=== PATIENT | male | born 1975 | race African-American/Black ===

== ENCOUNTER 2018-09-06 14:49 | Inpatient (IN) ==
[2018-09-06] MEDS ORDERED: ONDANSETRON 4 MG/2 ML VIAL IV PRN (17:07)
[2018-09-06] MEDS: MORPHINE ER 30 MG TABLET PO SCH (18:33)
[2018-09-06] MEDS: PIPERACILLIN/TAZOBACTAM 3,375 MG in SODIUM CHLORIDE 0.9% 100 ML IV SCH (20:03)
[2018-09-07] MEDS: PIPERACILLIN/TAZOBACTAM 3,375 MG in SODIUM CHLORIDE 0.9% 100 ML IV SCH ×3 (04:11→20:36)
[2018-09-07] MEDS: diphenhydrAMINE 50 MG/1 ML VIAL IV PRN (04:32)
[2018-09-07 04:58] LABS: INR 1.3; PT Patient Result 13.9 SECS; Partial Thromboplastin Time 28.3 SECS (0-40)
[2018-09-07 04:59] LABS: Basophils % 0.4 % (0.0-0.8); Eosinophils # 0.1 10*3/uL (0.0-0.87); Eosinophils % 0.8 % (0.00-10.9); Hematocrit 28.9 VOL% (42.0-52.0); Hemoglobin 9.5 GM/DL (14.0-18.0); Lymphocytes % 9.9 % (21.2-54.2); Mean Corpuscular HGB Conc 32.9 GM/DL (32-36); Mean Corpuscular Hemoglobin 26 PG (27-34); Mean Corpuscular Volume 78.5 FL (87-102); Mean Platelet Volume 9.7 FL (9.6-12.0); Monocytes # 1.1 10*3/uL (0.11-0.8); Monocytes % 11.5 % (1.7-12.7); Neutrophils # 7.4 10*3/uL (1.4-7.4); Neutrophils % 76.4 % (38.7-73.9); Platelet Count 548 T/CUMM (130-400); Red Blood Count 3.68 MC/CUMM (3.8-5.5); Red Cell Distribution Width 18.6 % (9.3-17.3); White Blood Count 9.7 T/CUMM (4-12)
[2018-09-07 05:10] LABS: Albumin 2.3 G/DL (3.4-5.0); Bilirubin,Direct 4.77 MG/DL (0.0-0.20); Bilirubin,Indirect 0.9 MG/DL (0.0-1.0); Bilirubin,Total 5.7 MG/DL (0.2-1.0); Calcium 8.9 MG/DL (8.5-10.1); Osmolality,Calculated 266.4 MOS/KG (273-304); Total Protein 6.6 G/DL (6.4-8.3)
[2018-09-07 05:13] LABS: % Iron Saturation 16.1 % (18-50); Ferritin 399.7 ng/ml (26-388)
[2018-09-07 05:18] LABS: Free T4 (Free Thyroxine) 1.22 NG/DL (0.76-1.46); Thyroid Stimulating Hormone 1.51 uIU/ml (0.358-3.74)
[2018-09-07] MEDS: MORPHINE ER 30 MG TABLET PO SCH ×2 (06:43→18:46)
[2018-09-07] MEDS: MORPHINE 4 MG/1 ML VIAL IV PRN ×2 (06:49→10:50)
[2018-09-07] MEDS ORDERED: DIAZEPAM 5 MG TABLET PO ONE (08:48)
[2018-09-07] MEDS ORDERED: BISACODYL 5 MG TABLET PO ONE (12:00)
[2018-09-07] MEDS ORDERED: SODIUM CHLORIDE 0.45% 1,000 ML IV SCH (13:00)
[2018-09-07] MEDS: SODIUM CHLORIDE 0.9% 1,000 ML IV SCH (16:17)
[2018-09-07] MEDS ORDERED: POLYETHYLENE GLYCOL POWDER 255 GM BOTTLE PO ONE (18:00)
[2018-09-07] MEDS: ACETAMINOPHEN 325 MG TABLET PO PRN (19:48)
[2018-09-07] MEDS ORDERED: MAGNESIUM CITRATE 300 ML BOTTLE PO ONE (21:00)
[2018-09-08] MEDS: PIPERACILLIN/TAZOBACTAM 3,375 MG in SODIUM CHLORIDE 0.9% 100 ML IV SCH (03:38)
[2018-09-08] MEDS ORDERED: MAGNESIUM CITRATE 300 ML BOTTLE PO ONE (05:30)
[2018-09-08 06:18] LABS: Basophils # 0.1 10*3/uL (0.0-0.2); Basophils % 0.4 % (0.0-0.8); Eosinophils # 0.1 10*3/uL (0.0-0.87); Eosinophils % 0.6 % (0.00-10.9); Hemoglobin 9.7 GM/DL (14.0-18.0); Immature Granulocytes % 2.6 %; Lymphocytes # 0.7 10*3/uL (1.4-4.0); Lymphocytes % 5.9 % (21.2-54.2); Mean Corpuscular HGB Conc 32.3 GM/DL (32-36); Mean Corpuscular Hemoglobin 26 PG (27-34); Mean Corpuscular Volume 78.7 FL (87-102); Mean Platelet Volume 9.2 FL (9.6-12.0); Monocytes # 1.2 10*3/uL (0.11-0.8); Monocytes % 9.8 % (1.7-12.7); Neutrophils # 9.4 10*3/uL (1.4-7.4); Neutrophils % 80.7 % (38.7-73.9); Platelet Count 556 T/CUMM (130-400); Red Blood Count 3.81 MC/CUMM (3.8-5.5); White Blood Count 11.7 T/CUMM (4-12)
[2018-09-08] MEDS: MORPHINE ER 30 MG TABLET PO SCH ×2 (06:18→18:05)
[2018-09-08 06:26] LABS: INR 1.3; PT Patient Result 14.6 SECS
[2018-09-08 06:40] LABS: Albumin 2.4 G/DL (3.4-5.0); Bilirubin,Total 8.8 MG/DL (0.2-1.0); Calcium 8.9 MG/DL (8.5-10.1); Osmolality,Calculated 267.4 MOS/KG (273-304); Potassium 4.7 MMOL/L (3.5-5.1); Total Protein 6.7 G/DL (6.4-8.3)
[2018-09-08] MEDS ORDERED: LIDOCAINE 2% 5 ML VIAL ONE (10:00)
[2018-09-08] MEDS ORDERED: PROPOFOL 200 MG/20 ML VIAL IV ONE (10:00)
[2018-09-08] MEDS: SODIUM CHLORIDE 0.9% 1,000 ML IV SCH ×2 (10:12→20:52)
[2018-09-08] MEDS: diphenhydrAMINE 50 MG/1 ML VIAL IV PRN (14:09)
[2018-09-08] MEDS: ACETAMINOPHEN 325 MG TABLET PO PRN (23:04)
[2018-09-09] MEDS: SODIUM CHLORIDE 0.9% 1,000 ML IV SCH (04:31)
[2018-09-09] MEDS: MORPHINE ER 30 MG TABLET PO SCH ×2 (06:22→18:10)
[2018-09-09 08:02] LABS: Basophils % 0.4 % (0.0-0.8); Eosinophils # 0.2 10*3/uL (0.0-0.87); Eosinophils % 2.1 % (0.00-10.9); Hematocrit 26.5 VOL% (42.0-52.0); Hemoglobin 8.8 GM/DL (14.0-18.0); Immature Granulocytes % 2.8 %; Immature Granulocytes Absolute 0.27 #; Lymphocytes # 0.8 10*3/uL (1.4-4.0); Mean Corpuscular HGB Conc 33.2 GM/DL (32-36); Mean Corpuscular Hemoglobin 26 PG (27-34); Mean Corpuscular Volume 78.9 FL (87-102); Monocytes # 0.9 10*3/uL (0.11-0.8); Monocytes % 9.6 % (1.7-12.7); Neutrophils # 7.5 10*3/uL (1.4-7.4); Neutrophils % 77.1 % (38.7-73.9); Platelet Count 511 T/CUMM (130-400); Red Blood Count 3.36 MC/CUMM (3.8-5.5); Red Cell Distribution Width 19.2 % (9.3-17.3); White Blood Count 9.8 T/CUMM (4-12)
[2018-09-09 08:25] LABS: Albumin 2.1 G/DL (3.4-5.0); Bilirubin,Total 7.6 MG/DL (0.2-1.0); Calcium 8.5 MG/DL (8.5-10.1); Osmolality,Calculated 270.4 MOS/KG (273-304); Potassium 4.5 MMOL/L (3.5-5.1); Total Protein 6.2 G/DL (6.4-8.3)
[2018-09-09] MEDS ORDERED: DEXTROSE 5% IV ONE (09:26)
[2018-09-09] MEDS ORDERED: OXALIPLATIN IV ONE (09:26)
[2018-09-09] MEDS ORDERED: LEUCOVORIN INJ 800 MG in DEXTROSE 5% 250 ML IV ONE (09:27)
[2018-09-09] MEDS ORDERED: PALONOSETRON 0.25 MG/5 ML VIAL IV ONE (09:28)
[2018-09-09] MEDS ORDERED: DEXAMETHASONE INJ 20 MG in SODIUM CHLORIDE 0.9% 50 ML IV ONE (09:28)
[2018-09-09] MEDS ORDERED: FOSAPREPITANT 150 MG in SODIUM CHLORIDE 0.9% 100 ML IV ONE (09:28)
[2018-09-09] MEDS: POLYETHYLENE GLYCOL POWDER 17 GM PACK PO SCH (11:23)
[2018-09-09] MEDS: FLUOROURACIL 2,400 MG in SODIUM CHLORIDE 0.9% 1,000 ML IV SCH (14:30)
[2018-09-09 22:38] LABS: Apearance,Urine CLEAR (Clear); Bilirubin,Urine Small mg/dL (Negative); Blood, Urine Negative (Negative); Glucose,Urine (UA) Negative (Negative); Hyaline Casts,Urine 4 /LPF (0-3); Ketones,Urine Negative (Negative); Mucus,Urine Occasional /LPF (Occasional); Nitrite,Urine Negative (Negative); Protein,Urine Negative; RBC,Urine <1 /HPF (0-4); Squamous Epithelial Cell,Urine Occasional /HPF (0-10); Urine Color Amber (Yellow); Urine Specific Gravity 1.025 (1.001-1.035); WBC,Urine 1 /HPF (0-6)
[2018-09-10] MEDS: SODIUM CHLORIDE 0.9% 1,000 ML IV SCH ×3 (02:44→13:11)
[2018-09-10 02:46] LABS: Basophils % 0.1 % (0.0-0.8); Hematocrit 27.8 VOL% (42.0-52.0); Immature Granulocytes Absolute 0.22 #; Lymphocytes # 0.7 10*3/uL (1.4-4.0); Mean Corpuscular HGB Conc 32.4 GM/DL (32-36); Mean Corpuscular Hemoglobin 26 PG (27-34); Mean Corpuscular Volume 79.9 FL (87-102); Mean Platelet Volume 9.5 FL (9.6-12.0); Monocytes # 0.6 10*3/uL (0.11-0.8); Neutrophils # 9.8 10*3/uL (1.4-7.4); Neutrophils % 86.9 % (38.7-73.9); Platelet Count 538 T/CUMM (130-400); Red Blood Count 3.48 MC/CUMM (3.8-5.5); Red Cell Distribution Width 19.5 % (9.3-17.3); White Blood Count 11.3 T/CUMM (4-12)
[2018-09-10 03:11] LABS: Albumin 2.2 G/DL (3.4-5.0); Bilirubin,Total 6.6 MG/DL (0.2-1.0); Calcium 8.8 MG/DL (8.5-10.1); Osmolality,Calculated 276.1 MOS/KG (273-304); Potassium 5.3 MMOL/L (3.5-5.1); Total Protein 6.6 G/DL (6.4-8.3)
[2018-09-10] MEDS: diphenhydrAMINE 50 MG/1 ML VIAL IV PRN ×2 (04:22→18:05)
[2018-09-10] MEDS: MORPHINE ER 30 MG TABLET PO SCH ×2 (07:07→18:54)
[2018-09-10] MEDS ORDERED: IRON SUCROSE 200 MG in SODIUM CHLORIDE 0.9% 100 ML IV SCH (09:00)
[2018-09-10] MEDS ORDERED: BISACODYL 5 MG TABLET PO PRN (09:56)
[2018-09-10] MEDS: POLYETHYLENE GLYCOL POWDER 17 GM PACK PO SCH (13:10)
[2018-09-10] MEDS: FLUOROURACIL 2,400 MG in SODIUM CHLORIDE 0.9% 1,000 ML IV SCH (14:59)
[2018-09-11] MEDS: SODIUM CHLORIDE 0.9% 1,000 ML IV SCH ×3 (00:47→18:30)
[2018-09-11 05:38] LABS: Basophils % 0.2 % (0.0-0.8); Hematocrit 28.5 VOL% (42.0-52.0); Hemoglobin 9.3 GM/DL (14.0-18.0); Immature Granulocytes % 1.8 %; Immature Granulocytes Absolute 0.23 #; Lymphocytes # 0.6 10*3/uL (1.4-4.0); Lymphocytes % 4.4 % (21.2-54.2); Mean Corpuscular HGB Conc 32.6 GM/DL (32-36); Mean Corpuscular Hemoglobin 26 PG (27-34); Mean Corpuscular Volume 79.4 FL (87-102); Mean Platelet Volume 9.5 FL (9.6-12.0); Monocytes # 0.5 10*3/uL (0.11-0.8); Monocytes % 3.5 % (1.7-12.7); Neutrophils # 11.6 10*3/uL (1.4-7.4); Neutrophils % 90.1 % (38.7-73.9); Platelet Count 580 T/CUMM (130-400); Red Blood Count 3.59 MC/CUMM (3.8-5.5); Red Cell Distribution Width 19.9 % (9.3-17.3); White Blood Count 12.9 T/CUMM (4-12)
[2018-09-11 06:09] LABS: Albumin 2.1 G/DL (3.4-5.0); Bilirubin,Total 6.2 MG/DL (0.2-1.0); Calcium 9.2 MG/DL (8.5-10.1); Potassium 5.9 MMOL/L (3.5-5.1); Total Protein 6.3 G/DL (6.4-8.3)
[2018-09-11] MEDS: MORPHINE ER 30 MG TABLET PO SCH ×2 (06:59→18:28)
[2018-09-11 07:11] LABS: Band Neutrophils 4 % (0-10); Polychromasia Few; Segmented Neutrophils 94 % (50-85); Total Cells Counted 100
[2018-09-11 07:12] LABS: Hypochromasia 1+; Microcytosis 1+; Platelet Estimate Increased; Stomatocytes Slight; Target Cells 1+; Tear Drop Cells Slight
[2018-09-11] MEDS ORDERED: SODIUM POLYSTYRENE SULFATE 15 GM/60 ML BOTTLE PO STA (09:31)
[2018-09-11] MEDS: POLYETHYLENE GLYCOL POWDER 17 GM PACK PO SCH (10:38)
[2018-09-11] MEDS: diphenhydrAMINE 50 MG/1 ML VIAL IV PRN (10:41)
[2018-09-12] MEDS: SODIUM CHLORIDE 0.9% 1,000 ML IV SCH (02:27)
[2018-09-12 04:55] LABS: Basophils % 0.1 % (0.0-0.8); Eosinophils % 0.1 % (0.00-10.9); Hematocrit 27.9 VOL% (42.0-52.0); Hemoglobin 9.1 GM/DL (14.0-18.0); Immature Granulocytes % 0.8 %; Lymphocytes # 0.8 10*3/uL (1.4-4.0); Lymphocytes % 6.2 % (21.2-54.2); Mean Corpuscular HGB Conc 32.6 GM/DL (32-36); Mean Corpuscular Hemoglobin 26 PG (27-34); Mean Corpuscular Volume 78.2 FL (87-102); Mean Platelet Volume 9.7 FL (9.6-12.0); Monocytes # 0.2 10*3/uL (0.11-0.8); Monocytes % 1.3 % (1.7-12.7); NRBC # 0.03 10*3/uL; Neutrophils # 11.4 10*3/uL (1.4-7.4); Neutrophils % 91.5 % (38.7-73.9); Platelet Count 491 T/CUMM (130-400); Red Blood Count 3.57 MC/CUMM (3.8-5.5); Red Cell Distribution Width 19.7 % (9.3-17.3); White Blood Count 12.5 T/CUMM (4-12)
[2018-09-12 05:17] LABS: Bilirubin,Total 7.6 MG/DL (0.2-1.0); Calcium 8.4 MG/DL (8.5-10.1); Osmolality,Calculated 277.1 MOS/KG (273-304); Total Protein 5.9 G/DL (6.4-8.3)
[2018-09-12 05:21] LABS: Band Neutrophils 2 % (0-10); Lymphocytes 9 % (20-55); Nucleated Red Blood Cells 1 (0-5); Segmented Neutrophils 89 % (50-85); Total Cells Counted 100
[2018-09-12 05:22] LABS: Hypochromasia 1+; Microcytosis 1+; Platelet Estimate Adequate
[2018-09-12] MEDS: MORPHINE ER 30 MG TABLET PO SCH (05:44)
[2018-09-12 07:49] VITALS: BP 112/80
[2018-09-12] MEDS: POLYETHYLENE GLYCOL POWDER 17 GM PACK PO SCH (10:17)
== END 2018-09-12 10:40 | disposition home or self-care (01) | DRG 375 ==
LOC: N.4E 15:03 → INTOOBSV 15:03 → SUATTDRO 15:03
PROVIDERS: ADMIT Internal Medicine; ATTEND Hospitalist
PROC: COLONBX (2018-09-08 12:20)

== ENCOUNTER 2018-09-13 10:04 | Observation (INO) ==
[2018-09-13 11:00] LABS: Eosinophils % 0.3 % (0.00-10.9); Hematocrit 28.5 VOL% (42.0-52.0); Hemoglobin 9.5 GM/DL (14.0-18.0); Immature Granulocytes % 1.4 %; Immature Granulocytes Absolute 0.16 #; Lymphocytes # 0.7 10*3/uL (1.4-4.0); Lymphocytes % 5.6 % (21.2-54.2); Mean Corpuscular HGB Conc 33.3 GM/DL (32-36); Mean Corpuscular Hemoglobin 26 PG (27-34); Mean Platelet Volume 9.3 FL (9.6-12.0); Monocytes # 0.1 10*3/uL (0.11-0.8); Monocytes % 0.7 % (1.7-12.7); NRBC # 0.03 10*3/uL; Neutrophils # 10.6 10*3/uL (1.4-7.4); Platelet Count 499 T/CUMM (130-400); Red Cell Distribution Width 20.2 % (9.3-17.3); White Blood Count 11.5 T/CUMM (4-12)
[2018-09-13 11:11] LABS: INR 1.6; PT Patient Result 17.2 SECS; Partial Thromboplastin Time 31.5 SECS (0-40)
[2018-09-13 11:22] LABS: Anisocytosis 1+; Band Neutrophils 2 % (0-10); Lymphocytes 3 % (20-55); Macrocytosis 1+; Platelet Estimate Normal; Segmented Neutrophils 94 % (50-85); Target Cells Few; Total Cells Counted 100
[2018-09-13 12:27] LABS: Albumin 1.9 G/DL (3.4-5.0); Calcium 8.7 MG/DL (8.5-10.1); Osmolality,Calculated 276.1 MOS/KG (273-304); Potassium 4.7 MMOL/L (3.5-5.1)
[2018-09-13] MEDS ORDERED: HYDROmorphone 2 MG/1 ML VIAL IV STA (15:22)
[2018-09-13] MEDS ORDERED: ONDANSETRON 4 MG/2 ML VIAL IV STA (15:22)
[2018-09-13] MEDS ORDERED: ACETAMINOPHEN 325 MG TABLET PO PRN (16:23)
[2018-09-13] MEDS ORDERED: PROMETHAZINE 25 MG/1 ML VIAL IM PRN (16:23)
[2018-09-13] MEDS ORDERED: ONDANSETRON 4 MG/2 ML VIAL IV PRN (16:23)
[2018-09-13] MEDS ORDERED: PROMETHAZINE 25 MG TABLET PO PRN (16:26)
[2018-09-13] MEDS ORDERED: ONDANSETRON 4 MG TABLET PO PRN (16:30)
[2018-09-13] MEDS ORDERED: ALBUMIN 25% 25 GM in PREMIX 1 EACH IV SCH (16:30)
[2018-09-13] MEDS: MORPHINE ER 30 MG TABLET PO SCH (20:26)
[2018-09-13] MEDS: ALBUMIN 25% 25 GM in PREMIX 1 EACH IV SCH (21:18)
[2018-09-13] MEDS: FUROSEMIDE 20 MG/2 ML VIAL IV SCH (21:20)
[2018-09-14 05:06] LABS: Basophils % 0.1 % (0.0-0.8); Eosinophils # 0.1 10*3/uL (0.0-0.87); Eosinophils % 0.7 % (0.00-10.9); Hematocrit 26.3 VOL% (42.0-52.0); Hemoglobin 8.7 GM/DL (14.0-18.0); Immature Granulocytes % 2.2 %; Immature Granulocytes Absolute 0.22 #; Mean Corpuscular HGB Conc 33.1 GM/DL (32-36); Mean Corpuscular Hemoglobin 26 PG (27-34); Mean Corpuscular Volume 77.8 FL (87-102); Mean Platelet Volume 9.6 FL (9.6-12.0); Monocytes # 0.2 10*3/uL (0.11-0.8); Monocytes % 1.9 % (1.7-12.7); NRBC # 0.05 10*3/uL; Neutrophils # 8.7 10*3/uL (1.4-7.4); Neutrophils % 85.1 % (38.7-73.9); Platelet Count 444 T/CUMM (130-400); Red Blood Count 3.38 MC/CUMM (3.8-5.5); Red Cell Distribution Width 20.1 % (9.3-17.3); White Blood Count 10.2 T/CUMM (4-12)
[2018-09-14 05:29] LABS: Bilirubin,Total 11.2 MG/DL (0.2-1.0); Calcium 8.6 MG/DL (8.5-10.1); Osmolality,Calculated 278.1 MOS/KG (273-304); Potassium 5.2 MMOL/L (3.5-5.1); Thyroid Stimulating Hormone 0.71 uIU/ml (0.358-3.74); Total Protein 5.8 G/DL (6.4-8.3)
[2018-09-14] MEDS ORDERED: ceFAZolin 2,000 MG in PREMIX 1 EACH IV ONE (07:40)
[2018-09-14] MEDS: CLOTRIMAZOLE 10 MG TROCHE PO SCH ×3 (08:52→21:14)
[2018-09-14] MEDS: FUROSEMIDE 20 MG/2 ML VIAL IV SCH ×2 (08:54→21:13)
[2018-09-14] MEDS: ALBUMIN 25% 25 GM in PREMIX 1 EACH IV SCH ×3 (08:55→21:13)
[2018-09-14] MEDS ORDERED: NYSTATIN 500,000 UNIT/5 ML UDCUP SWISH/SWAL SCH (09:00)
[2018-09-14] MEDS ORDERED: LIDOCAINE 1%/EPI INJ 20 ML VIAL ONE (10:45)
[2018-09-14] MEDS ORDERED: BUPIVACAINE 0.5% 50 ML VIAL ONE (10:45)
[2018-09-14] MEDS ORDERED: HEPARIN 5,000 UNIT/1 ML VIAL ONE (10:45)
[2018-09-14] MEDS ORDERED: oxyCODONE IR 5 MG TABLET PO PRN (11:29)
[2018-09-14] MEDS ORDERED: MORPHINE 4 MG/1 ML VIAL IV PRN (11:29)
[2018-09-14] MEDS ORDERED: fentaNYL 100 MCG/2 ML VIAL ONE (11:55)
[2018-09-14] MEDS ORDERED: PHENYLEPHRINE 1 MG/10 ML SYRINGE IV ONE (11:55)
[2018-09-14] MEDS ORDERED: MIDAZOLAM 2 MG/2 ML VIAL ONE (11:55)
[2018-09-14] MEDS ORDERED: PROPOFOL 500 MG/50 ML BOTTLE IV ONE (11:55)
[2018-09-14] MEDS: MULTIVITAMIN (CENTRUM) TABLET PO SCH (12:43)
[2018-09-14] MEDS: MORPHINE ER 30 MG TABLET PO SCH ×2 (12:43→21:13)
[2018-09-14] MEDS: MYLANTA/LIDO VISC/DIPH 300 ML BOTTLE SWISH/SPIT PRN ×2 (12:55→17:36)
[2018-09-14] MEDS: EZFE PO SCH (17:33)
[2018-09-14] MEDS: NON-FORMULARY MEDICATION (Fluticasone/Vilanterol [Breo Ellipta 100-25 Mcg Inh] 1 PUFF) INH SCH (17:34)
[2018-09-14] MEDS: POLYETHYLENE GLYCOL POWDER 17 GM PACK PO SCH (17:35)
[2018-09-15 05:33] LABS: Albumin 2.1 G/DL (3.4-5.0); Bilirubin,Total 11.1 MG/DL (0.2-1.0); Calcium 9.1 MG/DL (8.5-10.1); Osmolality,Calculated 286.7 MOS/KG (273-304); Potassium 5.6 MMOL/L (3.5-5.1); Total Protein 6.2 G/DL (6.4-8.3)
[2018-09-15] MEDS ORDERED: SODIUM POLYSTYRENE SULFATE 15 GM/60 ML BOTTLE PO STA ×2 (07:27→10:38)
[2018-09-15] MEDS: CLOTRIMAZOLE 10 MG TROCHE PO SCH (09:05)
[2018-09-15] MEDS: MORPHINE ER 30 MG TABLET PO SCH (09:05)
[2018-09-15] MEDS: MULTIVITAMIN (CENTRUM) TABLET PO SCH (09:06)
[2018-09-15] MEDS: FUROSEMIDE 20 MG/2 ML VIAL IV SCH (09:09)
[2018-09-15] MEDS: ALBUMIN 25% 25 GM in PREMIX 1 EACH IV SCH (09:09)
[2018-09-15] MEDS: NON-FORMULARY MEDICATION (Fluticasone/Vilanterol [Breo Ellipta 100-25 Mcg Inh] 1 PUFF) INH SCH (10:39)
[2018-09-15] MEDS: EZFE PO SCH (10:39)
[2018-09-15] MEDS ORDERED: LACTULOSE 20 GM/30 ML UDCUP PO ONE (10:43)
[2018-09-15] MEDS: POLYETHYLENE GLYCOL POWDER 17 GM PACK PO SCH (10:52)
[2018-09-15 12:01] VITALS: BP 105/68
== END 2018-09-15 13:57 | disposition home or self-care (01) ==
LOC: N.ED 10:04 → INTOOBSV 15:46 → N.EDINP 15:46 → N.4E 18:27
PROVIDERS: ADMIT Internal Medicine; ATTEND Internal Medicine

== ENCOUNTER 2018-10-08 18:24 | Inpatient (IN) ==
[2018-10-08] MEDS ORDERED: SODIUM CHLORIDE 0.9% 1,000 ML IV STA (18:57)
[2018-10-08] MEDS ORDERED: ONDANSETRON 4 MG/2 ML VIAL IV STA (18:57)
[2018-10-08 19:19] LABS: Hematocrit 33.4 VOL% (42.0-52.0); Hemoglobin 10.8 GM/DL (14.0-18.0); Immature Granulocytes % 11.1 %; Immature Granulocytes Absolute 9.23 #; Lymphocytes # 1.5 10*3/uL (1.4-4.0); Lymphocytes % 1.8 % (21.2-54.2); Mean Corpuscular HGB Conc 32.3 GM/DL (32-36); Mean Corpuscular Hemoglobin 28 PG (27-34); Mean Corpuscular Volume 87.7 FL (87-102); Mean Platelet Volume 9.4 FL (9.6-12.0); Monocytes # 0.5 10*3/uL (0.11-0.8); Monocytes % 0.6 % (1.7-12.7); NRBC # 0.05 10*3/uL; Neutrophils # 71.6 10*3/uL (1.4-7.4); Neutrophils % 86.5 % (38.7-73.9); Platelet Count 446 T/CUMM (130-400); Red Blood Count 3.81 MC/CUMM (3.8-5.5); Red Cell Distribution Width 23.8 % (9.3-17.3)
[2018-10-08 19:23] LABS: White Blood Count 82.8 T/CUMM (4-12)
[2018-10-08 19:40] LABS: Alanine Aminotransferase 135 U/L (16-61); Albumin 2.5 G/DL (3.4-5.0); Alkaline Phosphatase 510 U/L (45-117); Aspartate Amino Transferase 87 U/L (0-37); Blood Urea Nitrogen 15 MG/DL (7-18); Calcium 8.7 MG/DL (8.5-10.1); Glucose 90 MG/DL (74-106); Osmolality,Calculated 270.1 MOS/KG (273-304); Potassium 3.5 MMOL/L (3.5-5.1); Sodium 135 MMOL/L (136-145); Total Protein 6.5 G/DL (6.4-8.3); Troponin I < 0.015 NG/ML (0.00-0.045)
[2018-10-08 19:50] LABS: INR 1.2; PT Patient Result 13.1 SECS
[2018-10-08 19:58] LABS: Apearance,Urine CLEAR (Clear); Bilirubin,Urine Negative (Negative); Blood, Urine Negative (Negative); Glucose,Urine (UA) Negative (Negative); Ketones,Urine Negative (Negative); Mucus,Urine Occasional /LPF (Occasional); Nitrite,Urine Negative (Negative); Protein,Urine Negative; RBC,Urine 1 /HPF (0-4); Urine Color Amber (Yellow); Urine Specific Gravity 1.019 (1.001-1.035); WBC,Urine 2 /HPF (0-6)
[2018-10-08] MEDS ORDERED: MEROPENEM 1,000 MG in SODIUM CHLORIDE 0.9% 100 ML IV STA (19:58)
[2018-10-08] MEDS ORDERED: ALBUTEROL/IPRATROPIUM 3 ML NEB RESP TX STA (19:58)
[2018-10-08 20:05] LABS: Barbiturates Screen,Urine Negative (Negative); Benzodiazepines Screen,Urine Negative (Negative); Cannabinoid Screen,Urine Negative (Negative); Opiate Screen,Urine Positive (Negative); Phencyclidine Screen,Urine Negative (Negative)
[2018-10-08 20:14] LABS: Anisocytosis 1+; Band Neutrophils 5 % (0-10); Hypochromasia 1+; Lymphocytes 3 % (20-55); Segmented Neutrophils 91 % (50-85); Total Cells Counted 100
[2018-10-08 20:16] LABS: Microcytosis 1+; Target Cells Few
[2018-10-08 20:17] LABS: Platelet Estimate Increased
[2018-10-08] MEDS ORDERED: MORPHINE 4 MG/1 ML VIAL IV PRN (22:39)
[2018-10-08] MEDS ORDERED: LACTULOSE 20 GM/30 ML UDCUP PO PRN (22:39)
[2018-10-08] MEDS ORDERED: DOCUSATE SODIUM 100 MG CAPSULE PO PRN (22:39)
[2018-10-08] MEDS ORDERED: BISACODYL 5 MG TABLET PO PRN (22:39)
[2018-10-08] MEDS ORDERED: ZALEPLON 5 MG CAPSULE PO PRN (22:39)
[2018-10-08] MEDS ORDERED: ONDANSETRON 4 MG/2 ML VIAL IV PRN (22:39)
[2018-10-08] MEDS ORDERED: oxyCODONE ER 10 MG TABLET PO PRN (22:39)
[2018-10-08] MEDS: SODIUM CHLORIDE 0.9% 1,000 ML IV SCH (23:35)
[2018-10-08] MEDS: MORPHINE ER 30 MG TABLET PO SCH (23:43)
[2018-10-08] MEDS: ENOXAPARIN 40 MG/0.4 ML SYRINGE SUBCUT SCH (23:44)
[2018-10-08] MEDS: VANCOMYCIN INJ 1,250 MG in SODIUM CHLORIDE 0.9% 250 ML IV SCH (23:51)
[2018-10-09 04:32] LABS: Hematocrit 28.5 VOL% (42.0-52.0); Immature Granulocytes % 8.2 %; Immature Granulocytes Absolute 5.26 #; Lymphocytes # 1.5 10*3/uL (1.4-4.0); Lymphocytes % 2.4 % (21.2-54.2); Mean Corpuscular HGB Conc 31.6 GM/DL (32-36); Mean Corpuscular Hemoglobin 28 PG (27-34); Mean Corpuscular Volume 88.2 FL (87-102); Mean Platelet Volume 9.8 FL (9.6-12.0); Monocytes # 0.5 10*3/uL (0.11-0.8); Monocytes % 0.8 % (1.7-12.7); NRBC # 0.02 10*3/uL; Neutrophils # 56.7 10*3/uL (1.4-7.4); Neutrophils % 88.6 % (38.7-73.9); Platelet Count 390 T/CUMM (130-400); Red Blood Count 3.23 MC/CUMM (3.8-5.5); Red Cell Distribution Width 23.7 % (9.3-17.3)
[2018-10-09 04:46] LABS: White Blood Count 64.1 T/CUMM (4-12)
[2018-10-09 05:05] LABS: Albumin 2.2 G/DL (3.4-5.0); Bilirubin,Total 4.3 MG/DL (0.2-1.0); Calcium 7.9 MG/DL (8.5-10.1); Osmolality,Calculated 272.7 MOS/KG (273-304); Potassium 3.3 MMOL/L (3.5-5.1); Risk Ratio 11.62; Total Protein 5.4 G/DL (6.4-8.3); VLDL CHOLESTEROL 32.8 MG/DL
[2018-10-09 05:27] LABS: Hypochromasia 1+; Lymphocytes 2 % (20-55); Platelet Estimate Increased; Segmented Neutrophils 96 % (50-85)
[2018-10-09 05:28] LABS: Target Cells 1+
[2018-10-09 05:30] LABS: Anisocytosis 2+; Microcytosis 2+; Total Cells Counted 100
[2018-10-09] MEDS: SODIUM CHLORIDE 0.9% 1,000 ML IV SCH ×2 (08:45→18:04)
[2018-10-09] MEDS ORDERED: Fluticasone/Vilanterol [Breo Ellipta 100-25 Mcg Inh] INH SCH (09:00)
[2018-10-09] MEDS ORDERED: POTASSIUM CHLORIDE 20 MEQ TABLET PO ONE (09:18)
[2018-10-09] MEDS: VANCOMYCIN INJ 1,250 MG in SODIUM CHLORIDE 0.9% 250 ML IV SCH ×2 (10:05→18:04)
[2018-10-09] MEDS: POLYETHYLENE GLYCOL POWDER 17 GM PACK PO SCH (10:06)
[2018-10-09] MEDS: predniSONE 10 MG TABLET PO SCH (10:06)
[2018-10-09] MEDS: PANTOPRAZOLE 40 MG TABLET PO SCH (10:07)
[2018-10-09] MEDS: ESCITALOPRAM 10 MG TABLET PO SCH (10:07)
[2018-10-09] MEDS: MULTIVITAMIN (CENTRUM) TABLET PO SCH (10:07)
[2018-10-09] MEDS: FERROUS SULFATE ER 140 MG TABLET PO SCH (10:07)
[2018-10-09] MEDS: MORPHINE ER 30 MG TABLET PO SCH ×2 (10:07→21:23)
[2018-10-09] MEDS: MEROPENEM 1,000 MG in SODIUM CHLORIDE 0.9% 100 ML IV SCH ×2 (11:21→21:29)
[2018-10-09] MEDS ORDERED: MYLANTA/LIDO VISC/NYST 180 ML BOTTLE SWISH/SWAL PRN (17:28)
[2018-10-09] MEDS ORDERED: ATORVASTATIN 20 MG TABLET PO SCH (21:00)
[2018-10-09] MEDS: ENOXAPARIN 40 MG/0.4 ML SYRINGE SUBCUT SCH (21:22)
[2018-10-10] MEDS: VANCOMYCIN INJ 1,250 MG in SODIUM CHLORIDE 0.9% 250 ML IV SCH ×3 (02:46→18:12)
[2018-10-10] MEDS: SODIUM CHLORIDE 0.9% 1,000 ML IV SCH ×2 (04:52→14:02)
[2018-10-10 05:12] LABS: Basophils % 0.1 % (0.0-0.8); Eosinophils # 0.1 10*3/uL (0.0-0.87); Eosinophils % 0.1 % (0.00-10.9); Hematocrit 27.8 VOL% (42.0-52.0); Hemoglobin 8.7 GM/DL (14.0-18.0); Immature Granulocytes % 6.3 %; Immature Granulocytes Absolute 4.59 #; Lymphocytes # 1.6 10*3/uL (1.4-4.0); Lymphocytes % 2.2 % (21.2-54.2); Mean Corpuscular HGB Conc 31.3 GM/DL (32-36); Mean Corpuscular Hemoglobin 28 PG (27-34); Mean Corpuscular Volume 89.7 FL (87-102); Mean Platelet Volume 9.6 FL (9.6-12.0); Monocytes % 1.4 % (1.7-12.7); Neutrophils % 89.9 % (38.7-73.9); Platelet Count 362 T/CUMM (130-400); Red Cell Distribution Width 23.9 % (9.3-17.3)
[2018-10-10 05:15] LABS: White Blood Count 73.3 T/CUMM (4-12)
[2018-10-10 05:36] LABS: Albumin 2.3 G/DL (3.4-5.0); Calcium 7.8 MG/DL (8.5-10.1); Osmolality,Calculated 275.4 MOS/KG (273-304); Potassium 3.4 MMOL/L (3.5-5.1); Total Protein 5.6 G/DL (6.4-8.3)
[2018-10-10 05:44] LABS: Lymphocytes 2 % (20-55); Segmented Neutrophils 97 % (50-85); Total Cells Counted 100
[2018-10-10 05:45] LABS: Acanthocytes Few; Anisocytosis 1+; Hypochromasia 1+; Platelet Estimate Adequate; Target Cells 1+
[2018-10-10] MEDS: MULTIVITAMIN (CENTRUM) TABLET PO SCH (09:42)
[2018-10-10] MEDS: MORPHINE ER 30 MG TABLET PO SCH ×2 (09:42→20:44)
[2018-10-10] MEDS: ESCITALOPRAM 10 MG TABLET PO SCH (09:42)
[2018-10-10] MEDS: FERROUS SULFATE ER 140 MG TABLET PO SCH (09:42)
[2018-10-10] MEDS: PANTOPRAZOLE 40 MG TABLET PO SCH (09:42)
[2018-10-10] MEDS: MEROPENEM 1,000 MG in SODIUM CHLORIDE 0.9% 100 ML IV SCH ×2 (09:43→20:48)
[2018-10-10] MEDS: POLYETHYLENE GLYCOL POWDER 17 GM PACK PO SCH (09:43)
[2018-10-10] MEDS: predniSONE 10 MG TABLET PO SCH (09:43)
[2018-10-10] MEDS ORDERED: POTASSIUM CHLORIDE 20 MEQ TABLET PO ONE (14:10)
[2018-10-10] MEDS: ENOXAPARIN 40 MG/0.4 ML SYRINGE SUBCUT SCH (20:46)
[2018-10-11] MEDS: SODIUM CHLORIDE 0.9% 1,000 ML IV SCH ×2 (01:10→02:07)
[2018-10-11] MEDS: VANCOMYCIN INJ 1,250 MG in SODIUM CHLORIDE 0.9% 250 ML IV SCH (02:09)
[2018-10-11 05:11] LABS: Basophils # 0.1 10*3/uL (0.0-0.2); Basophils % 0.2 % (0.0-0.8); Eosinophils % 0.1 % (0.00-10.9); Hematocrit 27.8 VOL% (42.0-52.0); Hemoglobin 8.7 GM/DL (14.0-18.0); Immature Granulocytes Absolute 3.57 #; Lymphocytes # 1.6 10*3/uL (1.4-4.0); Lymphocytes % 2.7 % (21.2-54.2); Mean Corpuscular HGB Conc 31.3 GM/DL (32-36); Mean Corpuscular Hemoglobin 29 PG (27-34); Mean Corpuscular Volume 91.1 FL (87-102); Mean Platelet Volume 9.9 FL (9.6-12.0); Monocytes # 1.5 10*3/uL (0.11-0.8); Monocytes % 2.6 % (1.7-12.7); NRBC # 0.02 10*3/uL; Neutrophils # 52.2 10*3/uL (1.4-7.4); Neutrophils % 88.4 % (38.7-73.9); Platelet Count 372 T/CUMM (130-400); Red Blood Count 3.05 MC/CUMM (3.8-5.5); Red Cell Distribution Width 23.9 % (9.3-17.3)
[2018-10-11 05:31] LABS: Albumin 2.3 G/DL (3.4-5.0); Bilirubin,Total 3.5 MG/DL (0.2-1.0); Calcium 7.9 MG/DL (8.5-10.1); Osmolality,Calculated 277.3 MOS/KG (273-304); Potassium 3.3 MMOL/L (3.5-5.1); Total Protein 5.6 G/DL (6.4-8.3)
[2018-10-11 05:37] LABS: Band Neutrophils 1 % (0-10); Hypochromasia 1+; Lymphocytes 2 % (20-55); Microcytosis Slight; Ovalocytes Slight; Platelet Estimate Adequate; Segmented Neutrophils 94 % (50-85); Total Cells Counted 100
[2018-10-11] MEDS ORDERED: POTASSIUM CHLORIDE 20 MEQ TABLET PO ONE (08:50)
[2018-10-11] MEDS ORDERED: HEPARIN LOCK FLUSH 500 UNIT/5 ML SYRINGE IV PRN (09:13)
[2018-10-11] MEDS: MEROPENEM 1,000 MG in SODIUM CHLORIDE 0.9% 100 ML IV SCH (09:30)
[2018-10-11] MEDS: POLYETHYLENE GLYCOL POWDER 17 GM PACK PO SCH (09:31)
[2018-10-11] MEDS: MORPHINE ER 30 MG TABLET PO SCH (09:31)
[2018-10-11] MEDS: PANTOPRAZOLE 40 MG TABLET PO SCH (09:31)
[2018-10-11] MEDS: predniSONE 10 MG TABLET PO SCH (09:31)
[2018-10-11] MEDS: MULTIVITAMIN (CENTRUM) TABLET PO SCH (09:31)
[2018-10-11] MEDS: FERROUS SULFATE ER 140 MG TABLET PO SCH (09:32)
[2018-10-11 09:33] VITALS: BP 107/73
== END 2018-10-11 10:38 | disposition home health service (06) | DRG 194 ==
LOC: N.ED 18:24 → N.EDINP 21:20 → N.4E 22:48
PROVIDERS: ADMIT Internal Medicine; ATTEND Internal Medicine

== ENCOUNTER 2019-02-16 15:21 | Inpatient (IN) ==
[2019-02-16 16:04] LABS: Basophils # 0.1 10*3/uL (0.0-0.2); Basophils % 0.7 % (0.0-0.8); Eosinophils % 0.3 % (0.00-10.9); Hematocrit 31.6 VOL% (42.0-52.0); Hemoglobin 10.3 GM/DL (14.0-18.0); Immature Granulocytes % 3.1 %; Immature Granulocytes Absolute 0.45 #; Lymphocytes # 1.3 10*3/uL (1.4-4.0); Lymphocytes % 9.3 % (21.2-54.2); Mean Corpuscular HGB Conc 32.6 GM/DL (32-36); Mean Corpuscular Volume 94.9 FL (87-102); Mean Platelet Volume 10.3 FL (9.6-12.0); Monocytes % 4.2 % (1.7-12.7); Neutrophils % 82.4 % (38.7-73.9); Platelet Count 137 T/CUMM (130-400); Red Blood Count 3.33 MC/CUMM (3.8-5.5); Red Cell Distribution Width 16.9 % (9.3-17.3); White Blood Count 14.4 T/CUMM (4-12)
[2019-02-16 16:17] LABS: Alanine Aminotransferase 29 U/L (16-61); Albumin 3.1 G/DL (3.4-5.0); Alkaline Phosphatase 303 U/L (45-117); Aspartate Amino Transferase 30 U/L (0-37); Blood Urea Nitrogen 19 MG/DL (7-18); Glucose 94 MG/DL (74-106); Osmolality,Calculated 280.4 MOS/KG (273-304); Total Protein 6.2 G/DL (6.4-8.3)
[2019-02-16] MEDS ORDERED: SODIUM CHLORIDE 0.9% 1,000 ML IV STA (16:25)
[2019-02-16] MEDS ORDERED: MEROPENEM 1,000 MG in SODIUM CHLORIDE 0.9% 100 ML IV STA (16:51)
[2019-02-16 16:58] LABS: Band Neutrophils 3 % (0-10); Hypochromasia Slight; Lymphocytes 18 % (20-55); Macrocytosis Slight; Platelet Estimate Normal; Segmented Neutrophils 78 % (50-85); Total Cells Counted 100
[2019-02-16] MEDS ORDERED: SODIUM CHLORIDE 0.9% 2,200 ML IV ONE (17:16)
[2019-02-16] MEDS ORDERED: diphenhydrAMINE CAP 25 MG CAPSULE PO PRN (17:17)
[2019-02-16] MEDS ORDERED: MORPHINE 4 MG/1 ML VIAL IV PRN ×2 (17:17→17:38)
[2019-02-16] MEDS ORDERED: oxyCODONE IR 5 MG TABLET PO PRN (17:20)
[2019-02-16] MEDS ORDERED: CALCIUM GLUCONATE 2,000 MG in SODIUM CHLORIDE 0.9% 100 ML IV ONE (17:37)
[2019-02-16 19:18] LABS: Apearance,Urine CLEAR (Clear); Bilirubin,Urine Negative (Negative); Blood, Urine Moderate mg/dL (Negative); Glucose,Urine (UA) Negative (Negative); Ketones,Urine Negative (Negative); Mucus,Urine Occasional /LPF (Occasional); Nitrite,Urine Negative (Negative); Protein,Urine Negative; RBC,Urine 79 /HPF (0-4); Urine Color Yellow (Yellow); Urine Specific Gravity 1.017 (1.001-1.035); Urine Urobilinogen < 2.0 EU/DL (0.2-1.0); WBC,Urine 5 /HPF (0-6)
[2019-02-16] MEDS: SODIUM CHLORIDE 0.9% 1,000 ML IV SCH (20:27)
[2019-02-16] MEDS: ONDANSETRON 4 MG TABLET PO SCH (20:27)
[2019-02-16] MEDS: MORPHINE ER 30 MG TABLET PO SCH (20:28)
[2019-02-16] MEDS: VANCOMYCIN INJ 1,000 MG in SODIUM CHLORIDE 0.9% 250 ML IV SCH (20:33)
[2019-02-16] MEDS: HEPARIN 5,000 UNIT/1 ML VIAL SUBCUT SCH (22:50)
[2019-02-17] MEDS: MEROPENEM 1,000 MG in SYRINGE 1 EACH IV SCH ×2 (02:23→11:19)
[2019-02-17] MEDS: SODIUM CHLORIDE 0.9% 1,000 ML IV SCH ×2 (02:25→09:50)
[2019-02-17] MEDS: ONDANSETRON 4 MG TABLET PO SCH ×2 (02:27→09:46)
[2019-02-17 05:22] LABS: Basophils # 0.1 10*3/uL (0.0-0.2); Basophils % 0.6 % (0.0-0.8); Eosinophils # 0.1 10*3/uL (0.0-0.87); Eosinophils % 0.8 % (0.00-10.9); Hematocrit 25.4 VOL% (42.0-52.0); Hemoglobin 8.5 GM/DL (14.0-18.0); Immature Granulocytes % 2.5 %; Immature Granulocytes Absolute 0.28 #; Lymphocytes # 1.2 10*3/uL (1.4-4.0); Lymphocytes % 10.6 % (21.2-54.2); Mean Corpuscular HGB Conc 33.5 GM/DL (32-36); Mean Corpuscular Volume 94.4 FL (87-102); Mean Platelet Volume 10.7 FL (9.6-12.0); Monocytes % 4.2 % (1.7-12.7); Neutrophils % 81.3 % (38.7-73.9); Platelet Count 119 T/CUMM (130-400); Red Blood Count 2.69 MC/CUMM (3.8-5.5); Red Cell Distribution Width 16.9 % (9.3-17.3); White Blood Count 11.1 T/CUMM (4-12)
[2019-02-17 05:37] LABS: Albumin 2.5 G/DL (3.4-5.0); Bilirubin,Total 1.6 MG/DL (0.2-1.0); Osmolality,Calculated 283.8 MOS/KG (273-304); Total Protein 4.9 G/DL (6.4-8.3)
[2019-02-17 05:41] LABS: Calcium 5.5 MG/DL (8.5-10.1)
[2019-02-17 05:55] LABS: Band Neutrophils 6 % (0-10); Lymphocytes 12 % (20-55); Metamyelocytes 1 %; Segmented Neutrophils 80 % (50-85); Total Cells Counted 100
[2019-02-17 05:56] LABS: Hypochromasia 1+; Platelet Estimate Adequate; Reactive Lymphocytes 1+
[2019-02-17] MEDS: HEPARIN 5,000 UNIT/1 ML VIAL SUBCUT SCH ×3 (06:00→21:11)
[2019-02-17] MEDS ORDERED: CALCIUM GLUCONATE 2,000 MG in SODIUM CHLORIDE 0.9% 100 ML IV ONE ×2 (07:00→17:00)
[2019-02-17] MEDS ORDERED: Fluticasone Furoate-Vilanterol [Breo Ellipta] 1 PUFF INH SCH (09:00)
[2019-02-17] MEDS: ESCITALOPRAM 10 MG TABLET PO SCH (09:10)
[2019-02-17] MEDS: POLYETHYLENE GLYCOL POWDER 17 GM PACK PO SCH (09:10)
[2019-02-17] MEDS: MULTIVITAMIN (CENTRUM) TABLET PO SCH (09:10)
[2019-02-17] MEDS: predniSONE 10 MG TABLET PO SCH (09:10)
[2019-02-17] MEDS: LINACLOTIDE 145 MCG CAPSULE PO SCH (09:10)
[2019-02-17] MEDS: PROMETHAZINE INJ 25 MG in SODIUM CHLORIDE 0.9% 50 ML IV PRN (09:13)
[2019-02-17] MEDS: VANCOMYCIN INJ 1,000 MG in SODIUM CHLORIDE 0.9% 250 ML IV SCH ×2 (09:51→21:10)
[2019-02-17] MEDS: MORPHINE ER 30 MG TABLET PO SCH ×2 (11:09→21:11)
[2019-02-17] MEDS ORDERED: LORazepam 2 MG/1 ML VIAL IV PRN (11:36)
[2019-02-17] MEDS: DRONABINOL 2.5 MG CAPSULE PO SCH ×2 (12:02→21:11)
[2019-02-17] MEDS: CEFEPIME 1,000 MG in SODIUM CHLORIDE 0.9% 100 ML IV SCH ×2 (12:03→17:05)
[2019-02-17] MEDS: SODIUM CHLOR 0.9% KCL 20 MEQ 20 MEQ/1,000 ML BAG IV SCH (14:07)
[2019-02-17] MEDS ORDERED: SODIUM CHLORIDE 0.65% NASAL SPRAY 45 ML BOTTLE BOTH NARES PRN (22:46)
[2019-02-18] MEDS: SODIUM CHLOR 0.9% KCL 20 MEQ 20 MEQ/1,000 ML BAG IV SCH ×4 (00:06→21:25)
[2019-02-18] MEDS: CEFEPIME 1,000 MG in SODIUM CHLORIDE 0.9% 100 ML IV SCH ×2 (00:07→05:46)
[2019-02-18] MEDS: HEPARIN 5,000 UNIT/1 ML VIAL SUBCUT SCH ×3 (05:45→21:16)
[2019-02-18 06:50] LABS: Basophils # 0.1 10*3/uL (0.0-0.2); Basophils % 0.6 % (0.0-0.8); Eosinophils # 0.1 10*3/uL (0.0-0.87); Eosinophils % 0.6 % (0.00-10.9); Hematocrit 24.1 VOL% (42.0-52.0); Hemoglobin 8.1 GM/DL (14.0-18.0); Lymphocytes # 1.2 10*3/uL (1.4-4.0); Lymphocytes % 10.3 % (21.2-54.2); Mean Corpuscular HGB Conc 33.6 GM/DL (32-36); Mean Corpuscular Volume 94.1 FL (87-102); Mean Platelet Volume 10.2 FL (9.6-12.0); Monocytes % 4.7 % (1.7-12.7); NRBC # 0.03 10*3/uL; Neutrophils % 76.8 % (38.7-73.9); Platelet Count 139 T/CUMM (130-400); Red Blood Count 2.56 MC/CUMM (3.8-5.5); White Blood Count 11.4 T/CUMM (4-12)
[2019-02-18 07:09] LABS: Alanine Aminotransferase 26 U/L (16-61); Albumin 2.5 G/DL (3.4-5.0); Alkaline Phosphatase 239 U/L (45-117); Aspartate Amino Transferase 27 U/L (0-37); Blood Urea Nitrogen 10 MG/DL (7-18); Glucose 75 MG/DL (74-106); Osmolality,Calculated 285.7 MOS/KG (273-304); Total Protein 4.9 G/DL (6.4-8.3)
[2019-02-18 07:14] LABS: Calcium 5.7 MG/DL (8.5-10.1)
[2019-02-18 07:50] LABS: Band Neutrophils 1 % (0-10); Eosinophils 3 % (0-10); Hypochromasia Slight; Lymphocytes 9 % (20-55); Metamyelocytes 1 %; Myelocytes 2 %; Platelet Estimate Normal; Segmented Neutrophils 83 % (50-85); Total Cells Counted 100
[2019-02-18] MEDS ORDERED: CALCIUM GLUCONATE 2,000 MG in SODIUM CHLORIDE 0.9% 100 ML IV ONE ×4 (07:51→19:00)
[2019-02-18] MEDS ORDERED: MAGNESIUM SULF RIDER 4 GM in PREMIX 1 EACH IV PRN (07:51)
[2019-02-18] MEDS: predniSONE 10 MG TABLET PO SCH (08:26)
[2019-02-18] MEDS: DRONABINOL 2.5 MG CAPSULE PO SCH ×2 (08:26→21:16)
[2019-02-18] MEDS: ESCITALOPRAM 10 MG TABLET PO SCH (08:26)
[2019-02-18] MEDS: MULTIVITAMIN (CENTRUM) TABLET PO SCH (08:26)
[2019-02-18] MEDS: LINACLOTIDE 145 MCG CAPSULE PO SCH (08:27)
[2019-02-18] MEDS: MAGNESIUM SULF RIDER 2 GM in PREMIX 1 EACH IV PRN ×4 (08:28→21:21)
[2019-02-18] MEDS: POLYETHYLENE GLYCOL POWDER 17 GM PACK PO SCH (08:28)
[2019-02-18] MEDS: PROMETHAZINE INJ 25 MG in SODIUM CHLORIDE 0.9% 50 ML IV PRN (08:47)
[2019-02-18] MEDS: VANCOMYCIN INJ 1,000 MG in SODIUM CHLORIDE 0.9% 250 ML IV SCH (09:26)
[2019-02-18] MEDS: POTASSIUM CHLORIDE RIDER 20 MEQ in PREMIX 1 EACH IV PRN ×2 (09:26→13:00)
[2019-02-18 17:31] LABS: Osmolality,Calculated 285.8 MOS/KG (273-304)
[2019-02-18 17:34] LABS: Calcium 5.8 MG/DL (8.5-10.1)
[2019-02-18] MEDS: MORPHINE ER 30 MG TABLET PO SCH (21:17)
[2019-02-19] MEDS: SODIUM CHLOR 0.9% KCL 20 MEQ 20 MEQ/1,000 ML BAG IV SCH ×2 (04:51→12:42)
[2019-02-19] MEDS: HEPARIN 5,000 UNIT/1 ML VIAL SUBCUT SCH ×3 (05:09→21:07)
[2019-02-19 06:13] LABS: Basophils # 0.1 10*3/uL (0.0-0.2); Basophils % 0.8 % (0.0-0.8); Eosinophils # 0.1 10*3/uL (0.0-0.87); Eosinophils % 0.6 % (0.00-10.9); Hemoglobin 8.8 GM/DL (14.0-18.0); Immature Granulocytes % 12.5 %; Lymphocytes # 1.2 10*3/uL (1.4-4.0); Lymphocytes % 14.6 % (21.2-54.2); Mean Corpuscular HGB Conc 33.8 GM/DL (32-36); Mean Corpuscular Volume 93.9 FL (87-102); Mean Platelet Volume 10.4 FL (9.6-12.0); NRBC # 0.09 10*3/uL; Neutrophils % 62.5 % (38.7-73.9); Platelet Count 175 T/CUMM (130-400); Red Blood Count 2.77 MC/CUMM (3.8-5.5); Red Cell Distribution Width 16.9 % (9.3-17.3)
[2019-02-19 06:42] LABS: Albumin 2.6 G/DL (3.4-5.0); Bilirubin,Total 1.2 MG/DL (0.2-1.0); Calcium 6.5 MG/DL (8.5-10.1); Total Protein 5.4 G/DL (6.4-8.3)
[2019-02-19 07:37] LABS: Band Neutrophils 2 % (0-10); Eosinophils 1 % (0-10); Lymphocytes 9 % (20-55); Metamyelocytes 1 %; Platelet Estimate Normal; Segmented Neutrophils 79 % (50-85); Total Cells Counted 100
[2019-02-19] MEDS: PROMETHAZINE INJ 25 MG in SODIUM CHLORIDE 0.9% 50 ML IV PRN (07:48)
[2019-02-19] MEDS: MAGNESIUM SULF RIDER 2 GM in PREMIX 1 EACH IV PRN ×4 (07:48→21:09)
[2019-02-19] MEDS: POTASSIUM CHLORIDE RIDER 20 MEQ in PREMIX 1 EACH IV PRN (08:25)
[2019-02-19] MEDS: LINACLOTIDE 145 MCG CAPSULE PO SCH (08:30)
[2019-02-19] MEDS: POLYETHYLENE GLYCOL POWDER 17 GM PACK PO SCH (08:30)
[2019-02-19] MEDS: ESCITALOPRAM 10 MG TABLET PO SCH (09:16)
[2019-02-19] MEDS: predniSONE 10 MG TABLET PO SCH (09:16)
[2019-02-19] MEDS: MULTIVITAMIN (CENTRUM) TABLET PO SCH (09:16)
[2019-02-19] MEDS: DRONABINOL 2.5 MG CAPSULE PO SCH ×2 (09:16→21:07)
[2019-02-19] MEDS: POTASSIUM CHLORIDE RIDER 10 MEQ in PREMIX 1 EACH IV PRN (10:25)
[2019-02-19] MEDS ORDERED: CALCIUM GLUCONATE 2,000 MG in SODIUM CHLORIDE 0.9% 100 ML IV ONE ×2 (11:06→12:00)
[2019-02-19 17:48] LABS: Calcium 7.1 MG/DL (8.5-10.1)
[2019-02-19] MEDS ORDERED: CALCIUM GLUCONATE IV ONE (18:10)
[2019-02-19] MEDS ORDERED: SODIUM CHLORIDE 0.9% IV ONE (18:10)
[2019-02-19] MEDS: MORPHINE ER 30 MG TABLET PO SCH (21:07)
[2019-02-20 03:57] LABS: Basophils % 0.5 % (0.0-0.8); Eosinophils % 0.3 % (0.00-10.9); Hematocrit 26.6 VOL% (42.0-52.0); Hemoglobin 8.9 GM/DL (14.0-18.0); Immature Granulocytes % 27.6 %; Immature Granulocytes Absolute 2.45 #; Lymphocytes # 1.6 10*3/uL (1.4-4.0); Lymphocytes % 18.5 % (21.2-54.2); Mean Corpuscular HGB Conc 33.5 GM/DL (32-36); Mean Platelet Volume 10.3 FL (9.6-12.0); Monocytes % 11.8 % (1.7-12.7); NRBC # 0.26 10*3/uL; Neutrophils % 41.3 % (38.7-73.9); Platelet Count 189 T/CUMM (130-400); White Blood Count 8.9 T/CUMM (4-12)
[2019-02-20 04:17] LABS: Albumin 2.8 G/DL (3.4-5.0); Calcium 7.5 MG/DL (8.5-10.1); Osmolality,Calculated 279.3 MOS/KG (273-304); Total Protein 5.7 G/DL (6.4-8.3)
[2019-02-20] MEDS: HEPARIN 5,000 UNIT/1 ML VIAL SUBCUT SCH (04:52)
[2019-02-20] MEDS: MAGNESIUM SULF RIDER 2 GM in PREMIX 1 EACH IV PRN ×2 (04:53→06:57)
[2019-02-20] MEDS: POTASSIUM CHLORIDE RIDER 20 MEQ in PREMIX 1 EACH IV PRN (04:53)
[2019-02-20 04:54] LABS: Band Neutrophils 7 % (0-10); Eosinophils 1 % (0-10); Lymphocytes 19 % (20-55); Myelocytes 4 %; Nucleated Red Blood Cells 3 (0-5); Segmented Neutrophils 52 % (50-85); Total Cells Counted 100
[2019-02-20 04:55] LABS: Hypochromasia 1+; Platelet Estimate Adequate
[2019-02-20] MEDS: POTASSIUM CHLORIDE RIDER 10 MEQ in PREMIX 1 EACH IV PRN (06:57)
[2019-02-20] MEDS: POLYETHYLENE GLYCOL POWDER 17 GM PACK PO SCH (09:19)
[2019-02-20] MEDS: LINACLOTIDE 145 MCG CAPSULE PO SCH (09:19)
[2019-02-20] MEDS ORDERED: HEPARIN LOCK FLUSH 500 UNIT/5 ML SYRINGE IV ONE (09:30)
[2019-02-20] MEDS: MULTIVITAMIN (CENTRUM) TABLET PO SCH (09:34)
[2019-02-20] MEDS: predniSONE 10 MG TABLET PO SCH (09:35)
[2019-02-20] MEDS: ESCITALOPRAM 10 MG TABLET PO SCH (09:35)
[2019-02-20] MEDS: DRONABINOL 2.5 MG CAPSULE PO SCH (09:35)
[2019-02-20 12:07] VITALS: BP 92/50
== END 2019-02-20 12:00 | disposition home health service (06) | DRG 392 ==
LOC: N.ED 15:21 → SUATTDRO 17:17 → N.EDINP 17:17 → N.4E 19:14
PROVIDERS: ADMIT Internal Medicine; ATTEND Internal Medicine

== ENCOUNTER 2019-02-21 12:21 | Inpatient (IN) ==
[2019-02-21] MEDS ORDERED: SODIUM CHLORIDE 0.9% 1,000 ML IV STA ×2 (13:17→15:58)
[2019-02-21 13:52] LABS: Basophils % 0.2 % (0.0-0.8); Eosinophils # 0.1 10*3/uL (0.0-0.87); Eosinophils % 0.3 % (0.00-10.9); Hematocrit 30.5 VOL% (42.0-52.0); Hemoglobin 9.9 GM/DL (14.0-18.0); Immature Granulocytes % 18.4 %; Immature Granulocytes Absolute 3.51 #; Lymphocytes # 1.5 10*3/uL (1.4-4.0); Lymphocytes % 7.6 % (21.2-54.2); Mean Corpuscular HGB Conc 32.5 GM/DL (32-36); Mean Corpuscular Volume 95.9 FL (87-102); Mean Platelet Volume 9.7 FL (9.6-12.0); Monocytes % 8.3 % (1.7-12.7); NRBC # 0.27 10*3/uL; Neutrophils % 65.2 % (38.7-73.9); Platelet Count 200 T/CUMM (130-400); Red Blood Count 3.18 MC/CUMM (3.8-5.5); White Blood Count 19.1 T/CUMM (4-12)
[2019-02-21 14:06] LABS: Bilirubin,Total 0.9 MG/DL (0.2-1.0); Calcium 7.4 MG/DL (8.5-10.1); Osmolality,Calculated 277.4 MOS/KG (273-304); Total Protein 6.2 G/DL (6.4-8.3)
[2019-02-21] MEDS ORDERED: SODIUM CHLOR 0.9% KCL 40 MEQ 40 MEQ/1,000 ML BAG IV SCH (14:30)
[2019-02-21 15:10] LABS: Apearance,Urine CLEAR (Clear); Bilirubin,Urine Negative (Negative); Blood, Urine Small mg/dL (Negative); Glucose,Urine (UA) Negative (Negative); Ketones,Urine Negative (Negative); Mucus,Urine Occasional /LPF (Occasional); Nitrite,Urine Negative (Negative); Protein,Urine Negative; RBC,Urine 4 /HPF (0-4); Urine Color Yellow (Yellow); Urine Specific Gravity 1.005 (1.001-1.035); Urine Urobilinogen < 2.0 EU/DL (0.2-1.0); WBC,Urine 2 /HPF (0-6)
[2019-02-21 15:14] LABS: Band Neutrophils 3 % (0-10); Lymphocytes 17 % (20-55); Metamyelocytes 2 %; Myelocytes 5 %
[2019-02-21 15:15] LABS: Nucleated Red Blood Cells 3 (0-5); Segmented Neutrophils 69 % (50-85); Total Cells Counted 100
[2019-02-21 15:16] LABS: Anisocytosis 2+; Atypical Lymphocytes 1+; Macrocytosis 2+; Microcytosis 1+; Polychromasia Few
[2019-02-21 15:17] LABS: Platelet Estimate Normal
[2019-02-21] MEDS ORDERED: MAGNESIUM SULF RIDER 1 GM in PREMIX 1 EACH IV STA (15:38)
[2019-02-21] MEDS ORDERED: VANCOMYCIN INJ 1,500 MG in SODIUM CHLORIDE 0.9% 500 ML IV STA (15:59)
[2019-02-21] MEDS ORDERED: ONDANSETRON 4 MG/2 ML VIAL IV PRN (16:21)
[2019-02-21] MEDS ORDERED: ACETAMINOPHEN 325 MG TABLET PO PRN (16:21)
[2019-02-21] MEDS ORDERED: oxyCODONE IR 5 MG TABLET PO PRN (16:27)
[2019-02-21] MEDS ORDERED: HYOSCYAMINE 0.125 MG TABLET SL PRN (16:27)
[2019-02-21] MEDS: HYDROCORTISONE 100 MG VIAL IV SCH (18:38)
[2019-02-21] MEDS: MORPHINE ER 30 MG TABLET PO SCH (18:39)
[2019-02-21] MEDS: PANTOPRAZOLE 40 MG TABLET PO SCH (18:39)
[2019-02-21] MEDS: ENOXAPARIN 40 MG/0.4 ML SYRINGE SUBCUT SCH (18:39)
[2019-02-21] MEDS: SODIUM CHLORIDE 0.9% 1,000 ML IV SCH (18:40)
[2019-02-21] MEDS: LEVOFLOXACIN INJ 750 MG in PREMIX 1 EACH IV SCH (18:40)
[2019-02-21] MEDS: DRONABINOL 2.5 MG CAPSULE PO SCH (21:08)
[2019-02-21] MEDS: POTASSIUM CHLORIDE RIDER 20 MEQ in PREMIX 1 EACH IV PRN (21:08)
[2019-02-21] MEDS: CALCIUM (CARBONATE)/VITAMIN D 500 MG-200 UNIT TABLET PO SCH (21:08)
[2019-02-21] MEDS ORDERED: ESCITALOPRAM 10 MG TABLET PO ONE (21:22)
[2019-02-21] MEDS ORDERED: MAGNESIUM SULF RIDER 2 GM in PREMIX 1 EACH IV ONE (21:56)
[2019-02-22] MEDS: HYDROCORTISONE 100 MG VIAL IV SCH ×2 (02:38→09:02)
[2019-02-22 02:45] LABS: Hemoglobin 8.7 GM/DL (14.0-18.0); Immature Granulocytes % 10.7 %; Lymphocytes # 0.9 10*3/uL (1.4-4.0); Lymphocytes % 2.9 % (21.2-54.2); Mean Corpuscular HGB Conc 32.2 GM/DL (32-36); Mean Corpuscular Volume 97.5 FL (87-102); Monocytes % 5.1 % (1.7-12.7); NRBC # 0.15 10*3/uL; Neutrophils % 81.3 % (38.7-73.9); Platelet Count 174 T/CUMM (130-400); Red Blood Count 2.77 MC/CUMM (3.8-5.5); Red Cell Distribution Width 19.2 % (9.3-17.3); White Blood Count 30.9 T/CUMM (4-12)
[2019-02-22 03:12] LABS: Albumin 2.6 G/DL (3.4-5.0); Bilirubin,Total 0.7 MG/DL (0.2-1.0); Calcium 7.1 MG/DL (8.5-10.1); Osmolality,Calculated 285.8 MOS/KG (273-304); Total Protein 5.4 G/DL (6.4-8.3)
[2019-02-22] MEDS: MAGNESIUM SULF RIDER 2 GM in PREMIX 1 EACH IV PRN ×2 (04:14→06:07)
[2019-02-22 04:30] LABS: Anisocytosis 1+; Band Neutrophils 11 % (0-10); Lymphocytes 4 % (20-55); Macrocytosis 1+; Metamyelocytes 1 %; Ovalocytes Few; Platelet Estimate Normal; Segmented Neutrophils 80 % (50-85); Total Cells Counted 100
[2019-02-22] MEDS: SODIUM CHLORIDE 0.9% 1,000 ML IV SCH ×3 (05:37→22:44)
[2019-02-22] MEDS: MORPHINE ER 30 MG TABLET PO SCH ×2 (06:53→21:54)
[2019-02-22] MEDS: PROMETHAZINE 25 MG TABLET PO SCH (06:53)
[2019-02-22] MEDS: MULTIVITAMIN (CENTRUM) TABLET PO SCH (09:00)
[2019-02-22] MEDS: PANTOPRAZOLE 40 MG TABLET PO SCH (09:00)
[2019-02-22] MEDS: CALCIUM (CARBONATE)/VITAMIN D 500 MG-200 UNIT TABLET PO SCH ×2 (09:00→21:54)
[2019-02-22] MEDS: ESCITALOPRAM 10 MG TABLET PO SCH (09:00)
[2019-02-22] MEDS: DRONABINOL 2.5 MG CAPSULE PO SCH ×2 (09:02→21:54)
[2019-02-22] MEDS: ENOXAPARIN 40 MG/0.4 ML SYRINGE SUBCUT SCH (17:13)
[2019-02-22] MEDS: LEVOFLOXACIN INJ 750 MG in PREMIX 1 EACH IV SCH (17:14)
[2019-02-23 05:16] LABS: Calcium 6.9 MG/DL (8.5-10.1); Osmolality,Calculated 293.3 MOS/KG (273-304)
[2019-02-23] MEDS: SODIUM CHLORIDE 0.9% 1,000 ML IV SCH ×3 (06:47→21:30)
[2019-02-23 07:34] LABS: Basophils # 0.2 10*3/uL (0.0-0.2); Basophils % 0.5 % (0.0-0.8); Hematocrit 24.8 VOL% (42.0-52.0); Hemoglobin 7.8 GM/DL (14.0-18.0); Immature Granulocytes Absolute 2.99 #; Lymphocytes # 1.3 10*3/uL (1.4-4.0); Lymphocytes % 3.6 % (21.2-54.2); Mean Corpuscular HGB Conc 31.5 GM/DL (32-36); Mean Corpuscular Volume 100.8 FL (87-102); Mean Platelet Volume 10.5 FL (9.6-12.0); Monocytes % 6.7 % (1.7-12.7); NRBC # 0.31 10*3/uL; Neutrophils % 81.2 % (38.7-73.9); Platelet Count 167 T/CUMM (130-400); Red Blood Count 2.46 MC/CUMM (3.8-5.5); Red Cell Distribution Width 19.4 % (9.3-17.3); White Blood Count 37.5 T/CUMM (4-12)
[2019-02-23] MEDS: PROMETHAZINE 25 MG TABLET PO SCH (07:44)
[2019-02-23 08:54] LABS: Anisocytosis 1+; Band Neutrophils 9 % (0-10); Lymphocytes 5 % (20-55); Macrocytosis 1+; Nucleated Red Blood Cells 2 (0-5); Polychromasia Slight; Segmented Neutrophils 85 % (50-85); Total Cells Counted 100
[2019-02-23 08:55] LABS: Platelet Estimate Adequate
[2019-02-23] MEDS ORDERED: LOPERAMIDE 2 MG CAPSULE PO ONE (09:24)
[2019-02-23] MEDS: ESCITALOPRAM 10 MG TABLET PO SCH (09:59)
[2019-02-23] MEDS: DRONABINOL 2.5 MG CAPSULE PO SCH ×2 (09:59→21:27)
[2019-02-23] MEDS: MULTIVITAMIN (CENTRUM) TABLET PO SCH (09:59)
[2019-02-23] MEDS: CALCIUM (CARBONATE)/VITAMIN D 500 MG-200 UNIT TABLET PO SCH ×2 (09:59→21:28)
[2019-02-23] MEDS: PANTOPRAZOLE 40 MG TABLET PO SCH (10:00)
[2019-02-23] MEDS: MAGNESIUM SULF RIDER 2 GM in PREMIX 1 EACH IV PRN ×2 (10:00→12:00)
[2019-02-23] MEDS: POTASSIUM CHLORIDE RIDER 20 MEQ in PREMIX 1 EACH IV PRN ×3 (10:00→23:07)
[2019-02-23] MEDS: Fluticasone Furoate-Vilanterol [Breo Ellipta] 1 PUFF INH SCH (10:00)
[2019-02-23] MEDS ORDERED: SODIUM CHLORIDE 0.9% IV ONE (10:30)
[2019-02-23] MEDS ORDERED: CALCIUM GLUCONATE IV ONE (10:30)
[2019-02-23] MEDS: ENOXAPARIN 40 MG/0.4 ML SYRINGE SUBCUT SCH (18:03)
[2019-02-23] MEDS: LEVOFLOXACIN INJ 750 MG in PREMIX 1 EACH IV SCH (21:27)
[2019-02-23] MEDS: MORPHINE ER 30 MG TABLET PO SCH (21:28)
[2019-02-23] MEDS: LOPERAMIDE 2 MG CAPSULE PO PRN (21:28)
[2019-02-24] MEDS ORDERED: ACETAMINOPHEN 325 MG TABLET PO PRN (00:08)
[2019-02-24] MEDS: POTASSIUM CHLORIDE RIDER 10 MEQ in PREMIX 1 EACH IV PRN (01:14)
[2019-02-24] MEDS: SODIUM CHLORIDE 0.9% 1,000 ML IV SCH ×4 (01:16→20:47)
[2019-02-24 05:56] LABS: Basophils # 0.1 10*3/uL (0.0-0.2); Basophils % 0.4 % (0.0-0.8); Eosinophils % 0.1 % (0.00-10.9); Hemoglobin 9.1 GM/DL (14.0-18.0); Immature Granulocytes % 10.4 %; Immature Granulocytes Absolute 2.33 #; Lymphocytes % 4.3 % (21.2-54.2); Mean Corpuscular HGB Conc 32.5 GM/DL (32-36); Mean Corpuscular Volume 97.9 FL (87-102); Mean Platelet Volume 10.6 FL (9.6-12.0); Monocytes % 3.7 % (1.7-12.7); NRBC # 0.57 10*3/uL; Neutrophils % 81.1 % (38.7-73.9); Platelet Count 145 T/CUMM (130-400); Red Blood Count 2.86 MC/CUMM (3.8-5.5); Red Cell Distribution Width 19.3 % (9.3-17.3); White Blood Count 22.4 T/CUMM (4-12)
[2019-02-24] MEDS: PROMETHAZINE 25 MG TABLET PO SCH ×2 (05:59→08:11)
[2019-02-24 06:14] LABS: Calcium 7.3 MG/DL (8.5-10.1); Osmolality,Calculated 280.1 MOS/KG (273-304)
[2019-02-24 06:22] LABS: Band Neutrophils 5 % (0-10); Lymphocytes 5 % (20-55); Myelocytes 1 %; Nucleated Red Blood Cells 1 (0-5); Segmented Neutrophils 88 % (50-85); Total Cells Counted 100
[2019-02-24] MEDS: POTASSIUM CHLORIDE RIDER 20 MEQ in PREMIX 1 EACH IV PRN ×2 (06:23→08:23)
[2019-02-24 06:24] LABS: Anisocytosis 1+; Hypochromasia 1+; Platelet Estimate Adequate; Target Cells Few
[2019-02-24] MEDS: MULTIVITAMIN (CENTRUM) TABLET PO SCH (08:11)
[2019-02-24] MEDS: DRONABINOL 2.5 MG CAPSULE PO SCH ×2 (08:11→20:17)
[2019-02-24] MEDS: PANTOPRAZOLE 40 MG TABLET PO SCH (08:11)
[2019-02-24] MEDS: CALCIUM (CARBONATE)/VITAMIN D 500 MG-200 UNIT TABLET PO SCH ×2 (08:11→20:18)
[2019-02-24] MEDS: ESCITALOPRAM 10 MG TABLET PO SCH (08:11)
[2019-02-24] MEDS: LOPERAMIDE 2 MG CAPSULE PO PRN (08:19)
[2019-02-24] MEDS: Fluticasone Furoate-Vilanterol [Breo Ellipta] 1 PUFF INH SCH (08:24)
[2019-02-24] MEDS ORDERED: SODIUM CHLORIDE 0.9% 1,000 ML IV ONE ×2 (08:33→11:50)
[2019-02-24] MEDS: MAGNESIUM SULF RIDER 2 GM in PREMIX 1 EACH IV PRN ×2 (09:43→11:46)
[2019-02-24] MEDS ORDERED: SODIUM CHLORIDE 0.9% 250 ML IV ONE (11:50)
[2019-02-24 13:39] LABS: Basophils # 0.1 10*3/uL (0.0-0.2); Basophils % 0.4 % (0.0-0.8); Eosinophils % 0.1 % (0.00-10.9); Hematocrit 26.7 VOL% (42.0-52.0); Hemoglobin 8.7 GM/DL (14.0-18.0); Immature Granulocytes % 8.7 %; Immature Granulocytes Absolute 2.67 #; Lymphocytes # 0.8 10*3/uL (1.4-4.0); Lymphocytes % 2.5 % (21.2-54.2); Mean Corpuscular HGB Conc 32.6 GM/DL (32-36); Mean Corpuscular Volume 98.2 FL (87-102); Mean Platelet Volume 10.3 FL (9.6-12.0); Monocytes % 3.6 % (1.7-12.7); NRBC # 0.58 10*3/uL; Neutrophils % 84.7 % (38.7-73.9); Platelet Count 138 T/CUMM (130-400); Red Blood Count 2.72 MC/CUMM (3.8-5.5); Red Cell Distribution Width 19.6 % (9.3-17.3); White Blood Count 30.6 T/CUMM (4-12)
[2019-02-24] MEDS: MEROPENEM 1,000 MG in SODIUM CHLORIDE 0.9% 100 ML IV SCH (13:45)
[2019-02-24] MEDS: VANCOMYCIN INJ 1,000 MG in SODIUM CHLORIDE 0.9% 250 ML IV SCH ×2 (14:00→21:53)
[2019-02-24 14:41] LABS: Apearance,Urine CLEAR (Clear); Bilirubin,Urine Negative (Negative); Blood, Urine Negative (Negative); Glucose,Urine (UA) Negative (Negative); Hyaline Casts,Urine 1 /LPF (0-3); Ketones,Urine Negative (Negative); Mucus,Urine Occasional /LPF (Occasional); Nitrite,Urine Negative (Negative); Protein,Urine Negative; RBC,Urine 4 /HPF (0-4); Urine Color Yellow (Yellow); Urine Specific Gravity 1.008 (1.001-1.035); Urine Urobilinogen < 2.0 EU/DL (0.2-1.0); WBC,Urine 1 /HPF (0-6)
[2019-02-24 16:43] LABS: Band Neutrophils 8 % (0-10); Lymphocytes 4 % (20-55); Metamyelocytes 4 %; Myelocytes 1 %; Segmented Neutrophils 81 % (50-85); Total Cells Counted 100
[2019-02-24 16:44] LABS: Macrocytosis 1+; Nucleated Red Blood Cells 5 (0-5); Polychromasia 1+
[2019-02-24 16:45] LABS: Hypersegmented Neutrophil SLIGHT; Platelet Estimate Adequate; Toxic Granulation 2+
[2019-02-24] MEDS: HYDROCORTISONE 100 MG VIAL IV SCH (18:00)
[2019-02-24] MEDS: ENOXAPARIN 40 MG/0.4 ML SYRINGE SUBCUT SCH (18:17)
[2019-02-24] MEDS: WHEAT DEXTRIN POWDER 244 GM BOTTLE PO SCH ×2 (18:19→20:18)
[2019-02-24] MEDS: MORPHINE ER 30 MG TABLET PO SCH (20:17)
[2019-02-25] MEDS: MEROPENEM 1,000 MG in SODIUM CHLORIDE 0.9% 100 ML IV SCH ×2 (02:00→13:45)
[2019-02-25] MEDS: HYDROCORTISONE 100 MG VIAL IV SCH ×3 (02:01→17:30)
[2019-02-25] MEDS: SODIUM CHLORIDE 0.9% 1,000 ML IV SCH ×3 (02:24→21:12)
[2019-02-25] MEDS: VANCOMYCIN INJ 1,000 MG in SODIUM CHLORIDE 0.9% 250 ML IV SCH ×3 (05:21→21:05)
[2019-02-25] MEDS: DRONABINOL 2.5 MG CAPSULE PO SCH ×2 (09:02→20:33)
[2019-02-25] MEDS: MULTIVITAMIN (CENTRUM) TABLET PO SCH (09:03)
[2019-02-25] MEDS: CALCIUM (CARBONATE)/VITAMIN D 500 MG-200 UNIT TABLET PO SCH ×2 (09:03→20:33)
[2019-02-25] MEDS: PROMETHAZINE 25 MG TABLET PO SCH (09:03)
[2019-02-25] MEDS: PANTOPRAZOLE 40 MG TABLET PO SCH (09:03)
[2019-02-25] MEDS: ESCITALOPRAM 10 MG TABLET PO SCH (09:03)
[2019-02-25] MEDS: WHEAT DEXTRIN POWDER 244 GM BOTTLE PO SCH ×3 (09:04→20:33)
[2019-02-25] MEDS: Fluticasone Furoate-Vilanterol [Breo Ellipta] 1 PUFF INH SCH (10:40)
[2019-02-25 10:48] LABS: Hematocrit 26.7 VOL% (42.0-52.0); Hemoglobin 8.6 GM/DL (14.0-18.0); Immature Granulocytes % 6.1 %; Immature Granulocytes Absolute 2.94 #; Lymphocytes # 0.7 10*3/uL (1.4-4.0); Lymphocytes % 1.4 % (21.2-54.2); Mean Corpuscular HGB Conc 32.2 GM/DL (32-36); Mean Corpuscular Volume 98.5 FL (87-102); Mean Platelet Volume 10.4 FL (9.6-12.0); Monocytes % 1.6 % (1.7-12.7); NRBC # 0.19 10*3/uL; Neutrophils % 90.9 % (38.7-73.9); Platelet Count 147 T/CUMM (130-400); Red Blood Count 2.71 MC/CUMM (3.8-5.5); Red Cell Distribution Width 19.8 % (9.3-17.3)
[2019-02-25 10:58] LABS: White Blood Count 48.2 T/CUMM (4-12)
[2019-02-25 11:07] LABS: Albumin 2.4 G/DL (3.4-5.0); Bilirubin,Total 0.7 MG/DL (0.2-1.0); Calcium 6.6 MG/DL (8.5-10.1); Osmolality,Calculated 294.4 MOS/KG (273-304); Total Protein 5.3 G/DL (6.4-8.3)
[2019-02-25] MEDS: MAGNESIUM SULF RIDER 2 GM in PREMIX 1 EACH IV PRN ×2 (11:45→13:50)
[2019-02-25] MEDS: POTASSIUM CHLORIDE RIDER 20 MEQ in PREMIX 1 EACH IV PRN ×4 (12:00→23:54)
[2019-02-25 12:21] LABS: Band Neutrophils 6 % (0-10); Segmented Neutrophils 91 % (50-85); Total Cells Counted 100
[2019-02-25 12:22] LABS: Anisocytosis Slight; Hypochromasia Slight
[2019-02-25 12:23] LABS: Microcytosis Slight; Ovalocytes Few; Platelet Estimate Adequate; Polychromasia Few; Schistocytes Slight; Spherocytes Few
[2019-02-25] MEDS: LOPERAMIDE 2 MG CAPSULE PO PRN ×2 (14:42→21:38)
[2019-02-25] MEDS: ENOXAPARIN 40 MG/0.4 ML SYRINGE SUBCUT SCH (15:20)
[2019-02-25] MEDS: POTASSIUM CHLORIDE 20 MEQ TABLET PO SCH (20:33)
[2019-02-25] MEDS: MORPHINE ER 30 MG TABLET PO SCH (20:33)
[2019-02-25] MEDS: MAGNESIUM OXIDE 400 MG TABLET PO SCH (20:33)
[2019-02-26] MEDS: HYDROCORTISONE 100 MG VIAL IV SCH ×3 (01:46→18:22)
[2019-02-26] MEDS: MEROPENEM 1,000 MG in SODIUM CHLORIDE 0.9% 100 ML IV SCH ×2 (01:46→14:00)
[2019-02-26] MEDS: POTASSIUM CHLORIDE RIDER 10 MEQ in PREMIX 1 EACH IV PRN (01:57)
[2019-02-26 04:53] LABS: Basophils % 0.1 % (0.0-0.8); Hemoglobin 7.9 GM/DL (14.0-18.0); Immature Granulocytes % 6.6 %; Immature Granulocytes Absolute 3.11 #; Lymphocytes # 0.9 10*3/uL (1.4-4.0); Lymphocytes % 1.8 % (21.2-54.2); Mean Corpuscular HGB Conc 31.6 GM/DL (32-36); Mean Corpuscular Volume 98.8 FL (87-102); Mean Platelet Volume 10.4 FL (9.6-12.0); Monocytes % 3.3 % (1.7-12.7); NRBC # 0.24 10*3/uL; Neutrophils % 88.2 % (38.7-73.9); Platelet Count 137 T/CUMM (130-400); Red Blood Count 2.53 MC/CUMM (3.8-5.5); Red Cell Distribution Width 19.5 % (9.3-17.3)
[2019-02-26 04:54] LABS: White Blood Count 47.3 T/CUMM (4-12)
[2019-02-26 05:14] LABS: Calcium 6.2 MG/DL (8.5-10.1); Osmolality,Calculated 287.7 MOS/KG (273-304)
[2019-02-26 05:21] LABS: Anisocytosis 1+; Band Neutrophils 2 % (0-10); Hypochromasia 1+; Lymphocytes 2 % (20-55); Macrocytosis Slight; Microcytosis 1+; Nucleated Red Blood Cells 2 (0-5); Polychromasia Few; Segmented Neutrophils 96 % (50-85); Total Cells Counted 100
[2019-02-26 05:22] LABS: Platelet Estimate Adequate
[2019-02-26] MEDS: VANCOMYCIN INJ 1,000 MG in SODIUM CHLORIDE 0.9% 250 ML IV SCH ×3 (05:24→21:00)
[2019-02-26] MEDS: POTASSIUM CHLORIDE RIDER 20 MEQ in PREMIX 1 EACH IV PRN (05:43)
[2019-02-26] MEDS: MAGNESIUM SULF RIDER 4 GM in PREMIX 1 EACH IV PRN (05:44)
[2019-02-26] MEDS: ESCITALOPRAM 10 MG TABLET PO SCH (08:09)
[2019-02-26] MEDS: CALCIUM (CARBONATE)/VITAMIN D 500 MG-200 UNIT TABLET PO SCH ×2 (08:10→20:51)
[2019-02-26] MEDS: POTASSIUM CHLORIDE 20 MEQ TABLET PO SCH ×3 (08:10→20:51)
[2019-02-26] MEDS: PROMETHAZINE 25 MG TABLET PO SCH (08:10)
[2019-02-26] MEDS: MULTIVITAMIN (CENTRUM) TABLET PO SCH (08:10)
[2019-02-26] MEDS: DRONABINOL 2.5 MG CAPSULE PO SCH ×2 (08:10→20:51)
[2019-02-26] MEDS: PANTOPRAZOLE 40 MG TABLET PO SCH (08:10)
[2019-02-26] MEDS: MAGNESIUM OXIDE 400 MG TABLET PO SCH ×2 (08:10→20:51)
[2019-02-26] MEDS: WHEAT DEXTRIN POWDER 244 GM BOTTLE PO SCH ×3 (08:11→20:51)
[2019-02-26] MEDS: Fluticasone Furoate-Vilanterol [Breo Ellipta] 1 PUFF INH SCH (08:12)
[2019-02-26] MEDS: SODIUM CHLORIDE 0.9% 1,000 ML IV SCH ×2 (10:04→22:29)
[2019-02-26] MEDS ORDERED: SODIUM CHLORIDE 0.9% 1,000 ML IV PRN (15:46)
[2019-02-26] MEDS ORDERED: DIPHENOXYLATE/ATROPINE 2.5-0.025 MG TABLET PO ONE (15:46)
[2019-02-26] MEDS: ENOXAPARIN 40 MG/0.4 ML SYRINGE SUBCUT SCH (16:10)
[2019-02-26] MEDS: MORPHINE ER 30 MG TABLET PO SCH (20:51)
[2019-02-27] MEDS: SODIUM CHLORIDE 0.9% 1,000 ML IV SCH ×2 (01:13→04:25)
[2019-02-27] MEDS: MEROPENEM 1,000 MG in SODIUM CHLORIDE 0.9% 100 ML IV SCH ×2 (01:24→15:45)
[2019-02-27] MEDS: HYDROCORTISONE 100 MG VIAL IV SCH ×3 (01:25→17:13)
[2019-02-27 04:32] LABS: Basophils # 0.2 10*3/uL (0.0-0.2); Basophils % 0.4 % (0.0-0.8); Hematocrit 31.1 VOL% (42.0-52.0); Hemoglobin 10.4 GM/DL (14.0-18.0); Immature Granulocytes % 10.2 %; Lymphocytes # 1.2 10*3/uL (1.4-4.0); Lymphocytes % 2.7 % (21.2-54.2); Mean Corpuscular HGB Conc 33.4 GM/DL (32-36); Mean Platelet Volume 11.1 FL (9.6-12.0); Monocytes % 3.2 % (1.7-12.7); NRBC # 0.39 10*3/uL; Neutrophils % 83.5 % (38.7-73.9); Platelet Count 157 T/CUMM (130-400); Red Blood Count 3.31 MC/CUMM (3.8-5.5); Red Cell Distribution Width 20.2 % (9.3-17.3)
[2019-02-27 04:34] LABS: White Blood Count 45.2 T/CUMM (4-12)
[2019-02-27 04:42] LABS: Calcium 6.7 MG/DL (8.5-10.1); Osmolality,Calculated 289.6 MOS/KG (273-304)
[2019-02-27 05:05] LABS: Band Neutrophils 4 % (0-10); Lymphocytes 3 % (20-55); Nucleated Red Blood Cells 1 (0-5); Platelet Estimate Adequate; Segmented Neutrophils 89 % (50-85); Total Cells Counted 100
[2019-02-27 05:06] LABS: Hypochromasia 1+; Microcytosis Slight
[2019-02-27] MEDS: MAGNESIUM SULF RIDER 4 GM in PREMIX 1 EACH IV PRN (05:24)
[2019-02-27] MEDS: POTASSIUM CHLORIDE RIDER 20 MEQ in PREMIX 1 EACH IV PRN (05:24)
[2019-02-27] MEDS: VANCOMYCIN INJ 1,000 MG in SODIUM CHLORIDE 0.9% 250 ML IV SCH (06:13)
[2019-02-27] MEDS: PANTOPRAZOLE 40 MG TABLET PO SCH (09:02)
[2019-02-27] MEDS: POTASSIUM CHLORIDE 20 MEQ TABLET PO SCH ×3 (09:02→20:47)
[2019-02-27] MEDS: PROMETHAZINE 25 MG TABLET PO SCH (09:02)
[2019-02-27] MEDS: DIPHENOXYLATE/ATROPINE 2.5-0.025 MG TABLET PO SCH ×3 (09:03→20:42)
[2019-02-27] MEDS: CALCIUM (CARBONATE)/VITAMIN D 500 MG-200 UNIT TABLET PO SCH ×2 (09:03→20:42)
[2019-02-27] MEDS: ESCITALOPRAM 10 MG TABLET PO SCH (09:03)
[2019-02-27] MEDS: MULTIVITAMIN (CENTRUM) TABLET PO SCH (09:03)
[2019-02-27] MEDS: MAGNESIUM OXIDE 400 MG TABLET PO SCH ×2 (09:03→20:42)
[2019-02-27] MEDS: Fluticasone Furoate-Vilanterol [Breo Ellipta] 1 PUFF INH SCH (09:05)
[2019-02-27] MEDS: WHEAT DEXTRIN POWDER 244 GM BOTTLE PO SCH ×3 (09:06→20:42)
[2019-02-27] MEDS: SODIUM CHLOR 0.45% KCL 20 MEQ 20 MEQ/1,000 ML BAG IV SCH ×2 (09:14→21:50)
[2019-02-27] MEDS: DRONABINOL 2.5 MG CAPSULE PO SCH ×2 (09:36→20:42)
[2019-02-27] MEDS: ENOXAPARIN 40 MG/0.4 ML SYRINGE SUBCUT SCH (17:14)
[2019-02-27] MEDS: MAGNESIUM SULF RIDER 2 GM in PREMIX 1 EACH IV PRN (17:14)
[2019-02-27] MEDS: MORPHINE ER 30 MG TABLET PO SCH (20:43)
[2019-02-28] MEDS: HYDROCORTISONE 100 MG VIAL IV SCH ×3 (01:53→17:34)
[2019-02-28] MEDS: MEROPENEM 1,000 MG in SODIUM CHLORIDE 0.9% 100 ML IV SCH ×2 (01:56→13:19)
[2019-02-28] MEDS: SODIUM CHLOR 0.45% KCL 20 MEQ 20 MEQ/1,000 ML BAG IV SCH ×3 (03:55→23:51)
[2019-02-28 05:07] LABS: Basophils # 0.2 10*3/uL (0.0-0.2); Basophils % 0.4 % (0.0-0.8); Hematocrit 29.4 VOL% (42.0-52.0); Immature Granulocytes Absolute 3.39 #; Lymphocytes # 1.1 10*3/uL (1.4-4.0); Lymphocytes % 2.6 % (21.2-54.2); Mean Corpuscular Volume 92.5 FL (87-102); Mean Platelet Volume 11.6 FL (9.6-12.0); Monocytes % 4.5 % (1.7-12.7); NRBC # 0.68 10*3/uL; Neutrophils % 84.5 % (38.7-73.9); Platelet Count 157 T/CUMM (130-400); Red Blood Count 3.18 MC/CUMM (3.8-5.5); Red Cell Distribution Width 20.3 % (9.3-17.3)
[2019-02-28 05:10] LABS: White Blood Count 42.4 T/CUMM (4-12)
[2019-02-28 05:29] LABS: Band Neutrophils 4 % (0-10); Hypochromasia 1+; Lymphocytes 2 % (20-55); Platelet Estimate Adequate; Segmented Neutrophils 89 % (50-85); Total Cells Counted 100
[2019-02-28 05:51] LABS: Calcium 7.1 MG/DL (8.5-10.1); Osmolality,Calculated 282.1 MOS/KG (273-304)
[2019-02-28] MEDS: MAGNESIUM SULF RIDER 2 GM in PREMIX 1 EACH IV PRN ×2 (06:31→09:13)
[2019-02-28] MEDS: PROMETHAZINE 25 MG/1 ML VIAL IM PRN (06:31)
[2019-02-28] MEDS: PROMETHAZINE 25 MG TABLET PO SCH (07:23)
[2019-02-28] MEDS: DIPHENOXYLATE/ATROPINE 2.5-0.025 MG TABLET PO SCH ×2 (09:14→20:44)
[2019-02-28] MEDS: POTASSIUM CHLORIDE 20 MEQ TABLET PO SCH ×2 (09:14→17:35)
[2019-02-28] MEDS: ESCITALOPRAM 10 MG TABLET PO SCH (09:14)
[2019-02-28] MEDS: PANTOPRAZOLE 40 MG TABLET PO SCH (09:14)
[2019-02-28] MEDS: MULTIVITAMIN (CENTRUM) TABLET PO SCH (09:14)
[2019-02-28] MEDS: CALCIUM (CARBONATE)/VITAMIN D 500 MG-200 UNIT TABLET PO SCH ×2 (09:14→20:44)
[2019-02-28] MEDS: MAGNESIUM OXIDE 400 MG TABLET PO SCH ×2 (09:17→20:45)
[2019-02-28] MEDS: WHEAT DEXTRIN POWDER 244 GM BOTTLE PO SCH ×3 (09:18→20:45)
[2019-02-28] MEDS: Fluticasone Furoate-Vilanterol [Breo Ellipta] 1 PUFF INH SCH (09:19)
[2019-02-28] MEDS: DRONABINOL 2.5 MG CAPSULE PO SCH ×2 (13:19→20:45)
[2019-02-28] MEDS: POTASSIUM CHLORIDE RIDER 20 MEQ in PREMIX 1 EACH IV PRN (17:34)
[2019-02-28] MEDS: ENOXAPARIN 40 MG/0.4 ML SYRINGE SUBCUT SCH (17:34)
[2019-02-28] MEDS: MORPHINE ER 30 MG TABLET PO SCH (20:44)
[2019-03-01] MEDS: HYDROCORTISONE 100 MG VIAL IV SCH ×3 (02:43→17:21)
[2019-03-01] MEDS: MEROPENEM 1,000 MG in SODIUM CHLORIDE 0.9% 100 ML IV SCH (02:46)
[2019-03-01 04:53] LABS: Basophils % 0.1 % (0.0-0.8); Hematocrit 28.7 VOL% (42.0-52.0); Hemoglobin 9.6 GM/DL (14.0-18.0); Immature Granulocytes % 7.2 %; Immature Granulocytes Absolute 3.14 #; Lymphocytes # 0.9 10*3/uL (1.4-4.0); Mean Corpuscular HGB Conc 33.4 GM/DL (32-36); Mean Corpuscular Volume 94.7 FL (87-102); Mean Platelet Volume 11.2 FL (9.6-12.0); Monocytes % 5.9 % (1.7-12.7); NRBC # 0.37 10*3/uL; Neutrophils % 84.8 % (38.7-73.9); Platelet Count 139 T/CUMM (130-400); Red Blood Count 3.03 MC/CUMM (3.8-5.5); Red Cell Distribution Width 19.9 % (9.3-17.3)
[2019-03-01 04:57] LABS: White Blood Count 43.5 T/CUMM (4-12)
[2019-03-01 05:19] LABS: Band Neutrophils 2 % (0-10); Hypochromasia 1+; Lymphocytes 3 % (20-55); Platelet Estimate Adequate; Segmented Neutrophils 88 % (50-85); Total Cells Counted 100
[2019-03-01 05:20] LABS: Macrocytosis Slight; Polychromasia Slight
[2019-03-01 05:25] LABS: Calcium 7.5 MG/DL (8.5-10.1); Osmolality,Calculated 282.1 MOS/KG (273-304)
[2019-03-01] MEDS: PROMETHAZINE 25 MG TABLET PO SCH (06:32)
[2019-03-01] MEDS: metroNIDAZOLE 500 MG TABLET PO SCH ×3 (09:56→21:12)
[2019-03-01] MEDS: MULTIVITAMIN (CENTRUM) TABLET PO SCH (09:56)
[2019-03-01] MEDS: CALCIUM (CARBONATE)/VITAMIN D 500 MG-200 UNIT TABLET PO SCH ×2 (09:56→20:58)
[2019-03-01] MEDS: PANTOPRAZOLE 40 MG TABLET PO SCH (09:56)
[2019-03-01] MEDS: ESCITALOPRAM 10 MG TABLET PO SCH (09:56)
[2019-03-01] MEDS: DIPHENOXYLATE/ATROPINE 2.5-0.025 MG TABLET PO SCH ×2 (09:56→20:58)
[2019-03-01] MEDS: WHEAT DEXTRIN POWDER 244 GM BOTTLE PO SCH ×3 (09:57→21:18)
[2019-03-01] MEDS: Fluticasone Furoate-Vilanterol [Breo Ellipta] 1 PUFF INH SCH (09:57)
[2019-03-01] MEDS: MAGNESIUM SULFATE 1 GM/2 ML VIAL IM SCH ×3 (10:14→20:59)
[2019-03-01] MEDS: DRONABINOL 2.5 MG CAPSULE PO SCH ×2 (10:16→20:58)
[2019-03-01] MEDS: SODIUM CHLOR 0.45% KCL 20 MEQ 20 MEQ/1,000 ML BAG IV SCH (14:05)
[2019-03-01] MEDS: ENOXAPARIN 40 MG/0.4 ML SYRINGE SUBCUT SCH (17:18)
[2019-03-01] MEDS: MORPHINE ER 30 MG TABLET PO SCH (20:59)
[2019-03-02] MEDS ORDERED: SODIUM CHLORIDE 0.9% 100 ML IV ONE (01:59)
[2019-03-02] MEDS: HYDROCORTISONE 100 MG VIAL IV SCH ×3 (02:10→17:32)
[2019-03-02] MEDS: SODIUM CHLOR 0.45% KCL 20 MEQ 20 MEQ/1,000 ML BAG IV SCH ×2 (03:35→17:32)
[2019-03-02 05:50] LABS: Calcium 7.1 MG/DL (8.5-10.1); Osmolality,Calculated 286.8 MOS/KG (273-304)
[2019-03-02] MEDS: PROMETHAZINE 25 MG/1 ML VIAL IM PRN (07:09)
[2019-03-02] MEDS: PANTOPRAZOLE 40 MG TABLET PO SCH (09:58)
[2019-03-02] MEDS: POTASSIUM CHLORIDE 20 MEQ TABLET PO SCH ×3 (09:58→17:31)
[2019-03-02] MEDS: MAGNESIUM SULFATE 1 GM/2 ML VIAL IM SCH ×3 (09:59→20:46)
[2019-03-02] MEDS: ESCITALOPRAM 10 MG TABLET PO SCH (10:02)
[2019-03-02] MEDS: PROMETHAZINE 25 MG TABLET PO SCH (10:02)
[2019-03-02] MEDS: WHEAT DEXTRIN POWDER 244 GM BOTTLE PO SCH ×3 (10:02→20:40)
[2019-03-02] MEDS: CALCIUM (CARBONATE)/VITAMIN D 500 MG-200 UNIT TABLET PO SCH ×2 (10:02→20:40)
[2019-03-02] MEDS: DIPHENOXYLATE/ATROPINE 2.5-0.025 MG TABLET PO SCH ×2 (10:03→20:40)
[2019-03-02] MEDS: metroNIDAZOLE 500 MG TABLET PO SCH ×3 (10:03→20:40)
[2019-03-02] MEDS: DRONABINOL 2.5 MG CAPSULE PO SCH ×2 (10:03→20:40)
[2019-03-02] MEDS: MULTIVITAMIN (CENTRUM) TABLET PO SCH (10:03)
[2019-03-02] MEDS: Fluticasone Furoate-Vilanterol [Breo Ellipta] 1 PUFF INH SCH (10:04)
[2019-03-02] MEDS: ENOXAPARIN 40 MG/0.4 ML SYRINGE SUBCUT SCH (17:36)
[2019-03-03] MEDS: HYDROCORTISONE 100 MG VIAL IV SCH ×3 (01:50→17:56)
[2019-03-03 05:14] LABS: Calcium 7.3 MG/DL (8.5-10.1)
[2019-03-03] MEDS: PROMETHAZINE 25 MG TABLET PO SCH (07:07)
[2019-03-03] MEDS: SODIUM CHLOR 0.45% KCL 20 MEQ 20 MEQ/1,000 ML BAG IV SCH ×2 (07:07→20:54)
[2019-03-03] MEDS: DRONABINOL 2.5 MG CAPSULE PO SCH ×2 (09:42→20:46)
[2019-03-03] MEDS: metroNIDAZOLE 500 MG TABLET PO SCH ×3 (09:42→20:46)
[2019-03-03] MEDS: ESCITALOPRAM 10 MG TABLET PO SCH (09:42)
[2019-03-03] MEDS: PANTOPRAZOLE 40 MG TABLET PO SCH (09:42)
[2019-03-03] MEDS: POTASSIUM CHLORIDE 20 MEQ TABLET PO SCH ×3 (09:42→18:39)
[2019-03-03] MEDS: MULTIVITAMIN (CENTRUM) TABLET PO SCH (09:42)
[2019-03-03] MEDS: CALCIUM (CARBONATE)/VITAMIN D 500 MG-200 UNIT TABLET PO SCH ×2 (09:42→20:46)
[2019-03-03] MEDS: DIPHENOXYLATE/ATROPINE 2.5-0.025 MG TABLET PO SCH ×2 (09:42→20:46)
[2019-03-03] MEDS: MAGNESIUM SULFATE 1 GM/2 ML VIAL IM SCH ×3 (09:43→20:49)
[2019-03-03] MEDS: WHEAT DEXTRIN POWDER 244 GM BOTTLE PO SCH ×3 (09:43→20:57)
[2019-03-03] MEDS: Fluticasone Furoate-Vilanterol [Breo Ellipta] 1 PUFF INH SCH (09:44)
[2019-03-03] MEDS: ENOXAPARIN 40 MG/0.4 ML SYRINGE SUBCUT SCH (18:00)
[2019-03-04] MEDS: HYDROCORTISONE 100 MG VIAL IV SCH ×3 (01:49→17:26)
[2019-03-04 04:03] LABS: Calcium 7.1 MG/DL (8.5-10.1)
[2019-03-04] MEDS: PROMETHAZINE 25 MG TABLET PO SCH ×2 (06:38→09:51)
[2019-03-04] MEDS: Fluticasone Furoate-Vilanterol [Breo Ellipta] 1 PUFF INH SCH (09:51)
[2019-03-04] MEDS: WHEAT DEXTRIN POWDER 244 GM BOTTLE PO SCH ×3 (09:51→21:18)
[2019-03-04] MEDS: ESCITALOPRAM 10 MG TABLET PO SCH (09:51)
[2019-03-04] MEDS: CALCIUM (CARBONATE)/VITAMIN D 500 MG-200 UNIT TABLET PO SCH ×2 (09:51→21:18)
[2019-03-04] MEDS: DRONABINOL 2.5 MG CAPSULE PO SCH ×2 (09:51→21:18)
[2019-03-04] MEDS: metroNIDAZOLE 500 MG TABLET PO SCH ×3 (09:51→21:18)
[2019-03-04] MEDS: PANTOPRAZOLE 40 MG TABLET PO SCH (09:51)
[2019-03-04] MEDS: MULTIVITAMIN (CENTRUM) TABLET PO SCH (09:51)
[2019-03-04] MEDS: DIPHENOXYLATE/ATROPINE 2.5-0.025 MG TABLET PO SCH ×2 (09:51→21:18)
[2019-03-04] MEDS: SODIUM CHLOR 0.45% KCL 20 MEQ 20 MEQ/1,000 ML BAG IV SCH (10:53)
[2019-03-04] MEDS: ENOXAPARIN 40 MG/0.4 ML SYRINGE SUBCUT SCH (15:44)
[2019-03-04] MEDS ORDERED: MAGNESIUM SULF RIDER 4 GM in PREMIX 1 EACH IV ONE (20:28)
[2019-03-04] MEDS ORDERED: LIDOCAINE 1%/EPI INJ 20 ML VIAL MISC INJ ONE (20:28)
[2019-03-04] MEDS ORDERED: SILVER SULFADIAZINE 1% CREAM 25 GM TUBE TOP ONE (20:28)
[2019-03-04] MEDS ORDERED: POTASSIUM CHLORIDE 20 MEQ TABLET PO ONE (20:28)
[2019-03-04] MEDS ORDERED: TEMAZEPAM 15 MG CAPSULE PO ONE (20:33)
[2019-03-04] MEDS ORDERED: MAGNESIUM OXIDE 400 MG TABLET PO SCH (21:00)
[2019-03-04] MEDS: MAGNESIUM SULF RIDER 4 GM in PREMIX 1 EACH IV PRN (21:17)
[2019-03-04] MEDS: FLUTICASONE 50 MCG NASAL SPRAY 16 GM BOTTLE BOTH NARES SCH (21:19)
[2019-03-05] MEDS: HYDROCORTISONE 100 MG VIAL IV SCH ×3 (02:20→18:22)
[2019-03-05] MEDS: SODIUM CHLOR 0.45% KCL 20 MEQ 20 MEQ/1,000 ML BAG IV SCH ×2 (02:30→18:27)
[2019-03-05 05:53] LABS: Basophils # 0.1 10*3/uL (0.0-0.2); Basophils % 0.2 % (0.0-0.8); Hematocrit 28.2 VOL% (42.0-52.0); Hemoglobin 9.3 GM/DL (14.0-18.0); Immature Granulocytes % 5.5 %; Immature Granulocytes Absolute 1.52 #; Lymphocytes # 0.4 10*3/uL (1.4-4.0); Lymphocytes % 1.3 % (21.2-54.2); Mean Corpuscular Volume 96.2 FL (87-102); Mean Platelet Volume 11.4 FL (9.6-12.0); Monocytes % 4.2 % (1.7-12.7); NRBC # 0.03 10*3/uL; Neutrophils % 88.8 % (38.7-73.9); Platelet Count 202 T/CUMM (130-400); Red Blood Count 2.93 MC/CUMM (3.8-5.5); Red Cell Distribution Width 20.3 % (9.3-17.3); White Blood Count 27.7 T/CUMM (4-12)
[2019-03-05 06:14] LABS: Band Neutrophils 2 % (0-10); Calcium 7.1 MG/DL (8.5-10.1); Lymphocytes 2 % (20-55); Osmolality,Calculated 292.4 MOS/KG (273-304); Segmented Neutrophils 91 % (50-85); Total Cells Counted 100
[2019-03-05 06:15] LABS: Hypochromasia 1+; Platelet Estimate Normal
[2019-03-05 06:16] LABS: Anisocytosis 1+; Macrocytosis 1+; Polychromasia Few
[2019-03-05] MEDS: PROMETHAZINE 25 MG TABLET PO SCH ×2 (07:09→09:32)
[2019-03-05] MEDS: metroNIDAZOLE 500 MG TABLET PO SCH ×3 (09:31→20:27)
[2019-03-05] MEDS: PANTOPRAZOLE 40 MG TABLET PO SCH (09:31)
[2019-03-05] MEDS: CALCIUM (CARBONATE)/VITAMIN D 500 MG-200 UNIT TABLET PO SCH ×2 (09:31→20:27)
[2019-03-05] MEDS: DRONABINOL 2.5 MG CAPSULE PO SCH ×2 (09:31→20:26)
[2019-03-05] MEDS: MULTIVITAMIN (CENTRUM) TABLET PO SCH (09:31)
[2019-03-05] MEDS: FLUTICASONE 50 MCG NASAL SPRAY 16 GM BOTTLE BOTH NARES SCH (09:32)
[2019-03-05] MEDS: DIPHENOXYLATE/ATROPINE 2.5-0.025 MG TABLET PO SCH ×2 (09:32→20:27)
[2019-03-05] MEDS: ESCITALOPRAM 10 MG TABLET PO SCH (09:32)
[2019-03-05] MEDS: Fluticasone Furoate-Vilanterol [Breo Ellipta] 1 PUFF INH SCH ×2 (09:33→14:23)
[2019-03-05] MEDS: WHEAT DEXTRIN POWDER 244 GM BOTTLE PO SCH ×3 (09:33→20:28)
[2019-03-05] MEDS: POTASSIUM CHLORIDE 20 MEQ TABLET PO SCH ×2 (12:30→20:27)
[2019-03-05] MEDS: MAGNESIUM SULF RIDER 4 GM in PREMIX 1 EACH IV PRN (12:30)
[2019-03-05] MEDS: MAGNESIUM OXIDE 400 MG TABLET PO SCH ×2 (16:39→20:26)
[2019-03-05] MEDS: ENOXAPARIN 40 MG/0.4 ML SYRINGE SUBCUT SCH (16:39)
[2019-03-05] MEDS ORDERED: NYSTATIN 500,000 UNIT/5 ML UDCUP SWISH/SWAL ONE (18:20)
[2019-03-05] MEDS ORDERED: CLORAZEPATE 7.5 MG TABLET PO ONE (18:21)
[2019-03-05] MEDS: COLESEVELAM 625 MG TABLET PO SCH (18:22)
[2019-03-05] MEDS: CYCLOBENZAPRINE 10 MG TABLET PO PRN (20:27)
[2019-03-06] MEDS: HYDROCORTISONE 100 MG VIAL IV SCH ×3 (02:15→17:07)
[2019-03-06] MEDS: PROMETHAZINE 25 MG TABLET PO SCH (06:20)
[2019-03-06] MEDS: COLESEVELAM 625 MG TABLET PO SCH ×2 (09:21→17:07)
[2019-03-06] MEDS: CHOLESTYRAMINE 4 GM PACK PO SCH ×2 (09:22→21:31)
[2019-03-06] MEDS: CYCLOBENZAPRINE 10 MG TABLET PO PRN ×2 (09:22→14:35)
[2019-03-06] MEDS: DRONABINOL 2.5 MG CAPSULE PO SCH ×2 (09:22→21:32)
[2019-03-06] MEDS: POTASSIUM CHLORIDE 20 MEQ TABLET PO SCH (09:23)
[2019-03-06] MEDS: MULTIVITAMIN (CENTRUM) TABLET PO SCH (09:23)
[2019-03-06] MEDS: ESCITALOPRAM 10 MG TABLET PO SCH (09:23)
[2019-03-06] MEDS: MAGNESIUM CHLORIDE 64 MG TABLET PO SCH ×2 (09:23→21:32)
[2019-03-06] MEDS: DIPHENOXYLATE/ATROPINE 2.5-0.025 MG TABLET PO SCH ×3 (09:23→17:08)
[2019-03-06] MEDS: metroNIDAZOLE 500 MG TABLET PO SCH ×3 (09:23→21:32)
[2019-03-06] MEDS: WHEAT DEXTRIN POWDER 244 GM BOTTLE PO SCH ×3 (09:30→21:52)
[2019-03-06] MEDS: FLUTICASONE 50 MCG NASAL SPRAY 16 GM BOTTLE BOTH NARES SCH (11:45)
[2019-03-06] MEDS: CALCIUM (CARBONATE)/VITAMIN D 500 MG-200 UNIT TABLET PO SCH ×2 (11:45→21:32)
[2019-03-06] MEDS: Fluticasone Furoate-Vilanterol [Breo Ellipta] 1 PUFF INH SCH (11:45)
[2019-03-06] MEDS: PANTOPRAZOLE 40 MG TABLET PO SCH (11:45)
[2019-03-06] MEDS: MAGNESIUM SULF RIDER 2 GM in PREMIX 1 EACH IV PRN ×2 (15:59→19:01)
[2019-03-06] MEDS: ENOXAPARIN 40 MG/0.4 ML SYRINGE SUBCUT SCH (17:06)
[2019-03-06] MEDS: POTASSIUM CHLORIDE RIDER 20 MEQ in PREMIX 1 EACH IV PRN (21:42)
[2019-03-07] MEDS: LORazepam 0.5 MG TABLET PO PRN
[2019-03-07] MEDS: POTASSIUM CHLORIDE 20 MEQ TABLET PO SCH ×3 (01:37→20:51)
[2019-03-07] MEDS: DIPHENOXYLATE/ATROPINE 2.5-0.025 MG TABLET PO SCH ×5 (01:38→21:05)
[2019-03-07] MEDS: HYDROCORTISONE 100 MG VIAL IV SCH ×3 (01:55→20:44)
[2019-03-07 04:43] LABS: Basophils % 0.2 % (0.0-0.8); Hematocrit 27.7 VOL% (42.0-52.0); Immature Granulocytes % 4.7 %; Immature Granulocytes Absolute 1.06 #; Lymphocytes # 0.3 10*3/uL (1.4-4.0); Lymphocytes % 1.4 % (21.2-54.2); Mean Corpuscular HGB Conc 32.5 GM/DL (32-36); Mean Corpuscular Volume 96.5 FL (87-102); Mean Platelet Volume 10.7 FL (9.6-12.0); Monocytes % 4.7 % (1.7-12.7); NRBC # 0.03 10*3/uL; Platelet Count 190 T/CUMM (130-400); Red Blood Count 2.87 MC/CUMM (3.8-5.5); Red Cell Distribution Width 20.1 % (9.3-17.3); White Blood Count 22.7 T/CUMM (4-12)
[2019-03-07 05:03] LABS: Hypochromasia 1+; Lymphocytes 1 % (20-55); Platelet Estimate Adequate; Segmented Neutrophils 94 % (50-85); Total Cells Counted 100
[2019-03-07 05:04] LABS: Macrocytosis Slight
[2019-03-07 05:09] LABS: Calcium 6.9 MG/DL (8.5-10.1); Osmolality,Calculated 288.8 MOS/KG (273-304)
[2019-03-07] MEDS: PROMETHAZINE 25 MG/1 ML VIAL IM PRN (05:54)
[2019-03-07] MEDS: PROMETHAZINE 25 MG TABLET PO SCH (06:53)
[2019-03-07] MEDS: COLESEVELAM 625 MG TABLET PO SCH ×2 (09:28→18:00)
[2019-03-07] MEDS: WHEAT DEXTRIN POWDER 244 GM BOTTLE PO SCH ×2 (09:29→17:59)
[2019-03-07] MEDS: DRONABINOL 2.5 MG CAPSULE PO SCH ×2 (09:29→20:59)
[2019-03-07] MEDS: CHOLESTYRAMINE 4 GM PACK PO SCH ×2 (09:29→20:50)
[2019-03-07] MEDS: CALCIUM (CARBONATE)/VITAMIN D 500 MG-200 UNIT TABLET PO SCH ×2 (09:30→20:53)
[2019-03-07] MEDS: metroNIDAZOLE 500 MG TABLET PO SCH ×3 (09:30→20:51)
[2019-03-07] MEDS: MULTIVITAMIN (CENTRUM) TABLET PO SCH (09:30)
[2019-03-07] MEDS: MAGNESIUM CHLORIDE 64 MG TABLET PO SCH ×3 (09:30→20:53)
[2019-03-07] MEDS: FLUTICASONE 50 MCG NASAL SPRAY 16 GM BOTTLE BOTH NARES SCH (09:31)
[2019-03-07] MEDS: Fluticasone Furoate-Vilanterol [Breo Ellipta] 1 PUFF INH SCH (09:31)
[2019-03-07] MEDS: PANTOPRAZOLE 40 MG TABLET PO SCH (09:31)
[2019-03-07] MEDS: MAGNESIUM SULF RIDER 2 GM in PREMIX 1 EACH IV PRN ×2 (09:32→11:22)
[2019-03-07] MEDS: ESCITALOPRAM 10 MG TABLET PO SCH (09:37)
[2019-03-07 15:32] LABS: Basophils # 0.1 10*3/uL (0.0-0.2); Basophils % 0.2 % (0.0-0.8); Hemoglobin 9.8 GM/DL (14.0-18.0); Immature Granulocytes % 4.6 %; Immature Granulocytes Absolute 1.22 #; Lymphocytes # 0.3 10*3/uL (1.4-4.0); Lymphocytes % 1.1 % (21.2-54.2); Mean Corpuscular HGB Conc 31.6 GM/DL (32-36); Mean Corpuscular Volume 98.1 FL (87-102); Mean Platelet Volume 10.4 FL (9.6-12.0); Monocytes % 4.8 % (1.7-12.7); NRBC # 0.04 10*3/uL; Neutrophils % 89.3 % (38.7-73.9); Platelet Count 207 T/CUMM (130-400); Red Blood Count 3.16 MC/CUMM (3.8-5.5); Red Cell Distribution Width 20.5 % (9.3-17.3); White Blood Count 26.6 T/CUMM (4-12)
[2019-03-07 15:53] LABS: Metamyelocytes 1 %; Segmented Neutrophils 92 % (50-85); Total Cells Counted 100
[2019-03-07 15:54] LABS: Anisocytosis 2+; Macrocytosis 2+; Platelet Estimate Normal; Polychromasia Few; Target Cells Few
[2019-03-07 15:55] LABS: Reactive Lymphocytes Few; Tear Drop Cells Few
[2019-03-07] MEDS: ENOXAPARIN 40 MG/0.4 ML SYRINGE SUBCUT SCH (18:00)
[2019-03-07] MEDS: rOPINIRole 0.25 MG TABLET PO SCH (20:52)
[2019-03-08] MEDS: HYDROCORTISONE 100 MG VIAL IV SCH ×4 (01:52→20:19)
[2019-03-08] MEDS: WHEAT DEXTRIN POWDER 244 GM BOTTLE PO SCH ×4 (02:43→20:22)
[2019-03-08] MEDS: LOPERAMIDE 2 MG CAPSULE PO PRN (02:55)
[2019-03-08 05:26] LABS: Basophils % 0.1 % (0.0-0.8); Hematocrit 26.4 VOL% (42.0-52.0); Hemoglobin 8.6 GM/DL (14.0-18.0); Immature Granulocytes % 5.3 %; Immature Granulocytes Absolute 1.11 #; Lymphocytes # 0.2 10*3/uL (1.4-4.0); Lymphocytes % 1.1 % (21.2-54.2); Mean Corpuscular HGB Conc 32.6 GM/DL (32-36); Mean Corpuscular Volume 96.4 FL (87-102); Mean Platelet Volume 10.9 FL (9.6-12.0); Monocytes % 5.9 % (1.7-12.7); NRBC # 0.02 10*3/uL; Neutrophils % 87.6 % (38.7-73.9); Platelet Count 165 T/CUMM (130-400); Red Blood Count 2.74 MC/CUMM (3.8-5.5); Red Cell Distribution Width 20.4 % (9.3-17.3)
[2019-03-08 05:49] LABS: Band Neutrophils 2 % (0-10); Hypochromasia 1+; Lymphocytes 1 % (20-55); Macrocytosis Slight; Platelet Estimate Adequate; Segmented Neutrophils 92 % (50-85); Total Cells Counted 100
[2019-03-08 05:59] LABS: Calcium 6.7 MG/DL (8.5-10.1)
[2019-03-08] MEDS: PROMETHAZINE 25 MG TABLET PO SCH (06:30)
[2019-03-08] MEDS: PANTOPRAZOLE 40 MG TABLET PO SCH (09:35)
[2019-03-08] MEDS: CALCIUM (CARBONATE)/VITAMIN D 500 MG-200 UNIT TABLET PO SCH ×2 (09:35→20:21)
[2019-03-08] MEDS: CHOLESTYRAMINE 4 GM PACK PO SCH ×2 (09:35→20:22)
[2019-03-08] MEDS: MAGNESIUM CHLORIDE 64 MG TABLET PO SCH ×3 (09:35→20:21)
[2019-03-08] MEDS: POTASSIUM CHLORIDE 20 MEQ TABLET PO SCH ×2 (09:35→20:21)
[2019-03-08] MEDS: DIPHENOXYLATE/ATROPINE 2.5-0.025 MG TABLET PO SCH ×4 (09:36→20:22)
[2019-03-08] MEDS: COLESEVELAM 625 MG TABLET PO SCH ×2 (09:36→16:29)
[2019-03-08] MEDS: ESCITALOPRAM 10 MG TABLET PO SCH (09:36)
[2019-03-08] MEDS: DRONABINOL 2.5 MG CAPSULE PO SCH ×2 (09:36→20:22)
[2019-03-08] MEDS: MULTIVITAMIN (CENTRUM) TABLET PO SCH (09:36)
[2019-03-08] MEDS: metroNIDAZOLE 500 MG TABLET PO SCH ×2 (09:36→14:34)
[2019-03-08] MEDS: FLUTICASONE 50 MCG NASAL SPRAY 16 GM BOTTLE BOTH NARES SCH (09:37)
[2019-03-08] MEDS: Fluticasone Furoate-Vilanterol [Breo Ellipta] 1 PUFF INH SCH (09:37)
[2019-03-08] MEDS: SODIUM CHLOR 0.45% KCL 20 MEQ 20 MEQ/1,000 ML BAG IV SCH (10:57)
[2019-03-08] MEDS ORDERED: POTASSIUM PHOSPHATE 15 MMOL in SODIUM CHLORIDE 0.9% 100 ML IV ONE (14:43)
[2019-03-08] MEDS: ENOXAPARIN 40 MG/0.4 ML SYRINGE SUBCUT SCH (16:29)
[2019-03-08] MEDS: LORazepam 0.5 MG TABLET PO PRN (16:29)
[2019-03-08] MEDS ORDERED: SILVER SULFADIAZINE 1% CREAM 25 GM TUBE TOP ONE (19:00)
[2019-03-08] MEDS: rOPINIRole 0.25 MG TABLET PO SCH (20:22)
[2019-03-09] MEDS: HYDROCORTISONE 100 MG VIAL IV SCH ×3 (01:06→14:03)
[2019-03-09 05:01] LABS: Basophils # 0.1 10*3/uL (0.0-0.2); Basophils % 0.2 % (0.0-0.8); Hematocrit 26.6 VOL% (42.0-52.0); Hemoglobin 8.6 GM/DL (14.0-18.0); Immature Granulocytes % 3.8 %; Immature Granulocytes Absolute 0.81 #; Lymphocytes # 0.2 10*3/uL (1.4-4.0); Mean Corpuscular HGB Conc 32.3 GM/DL (32-36); Mean Corpuscular Volume 97.1 FL (87-102); Mean Platelet Volume 10.9 FL (9.6-12.0); Monocytes % 4.6 % (1.7-12.7); Neutrophils % 90.4 % (38.7-73.9); Platelet Count 158 T/CUMM (130-400); Red Blood Count 2.74 MC/CUMM (3.8-5.5); Red Cell Distribution Width 20.8 % (9.3-17.3); White Blood Count 21.6 T/CUMM (4-12)
[2019-03-09 05:31] LABS: Calcium 6.4 MG/DL (8.5-10.1)
[2019-03-09 05:39] LABS: Band Neutrophils 3 % (0-10); Lymphocytes 2 % (20-55); Segmented Neutrophils 92 % (50-85); Total Cells Counted 100
[2019-03-09 05:40] LABS: Platelet Estimate Adequate
[2019-03-09] MEDS: PROMETHAZINE 25 MG TABLET PO SCH (06:33)
[2019-03-09] MEDS: POTASSIUM CHLORIDE RIDER 20 MEQ in PREMIX 1 EACH IV PRN (06:44)
[2019-03-09] MEDS: POTASSIUM CHLORIDE RIDER 10 MEQ in PREMIX 1 EACH IV PRN (08:15)
[2019-03-09] MEDS: CHOLESTYRAMINE 4 GM PACK PO SCH ×3 (08:16→21:20)
[2019-03-09] MEDS: COLESEVELAM 625 MG TABLET PO SCH ×2 (08:17→16:57)
[2019-03-09] MEDS: PANTOPRAZOLE 40 MG TABLET PO SCH (08:17)
[2019-03-09] MEDS: CALCIUM (CARBONATE)/VITAMIN D 500 MG-200 UNIT TABLET PO SCH ×2 (08:17→21:20)
[2019-03-09] MEDS: POTASSIUM CHLORIDE 20 MEQ TABLET PO SCH ×2 (08:17→21:20)
[2019-03-09] MEDS: ESCITALOPRAM 10 MG TABLET PO SCH (08:17)
[2019-03-09] MEDS: DIPHENOXYLATE/ATROPINE 2.5-0.025 MG TABLET PO SCH ×4 (08:17→21:20)
[2019-03-09] MEDS: MULTIVITAMIN (CENTRUM) TABLET PO SCH (08:17)
[2019-03-09] MEDS: WHEAT DEXTRIN POWDER 244 GM BOTTLE PO SCH ×3 (08:18→21:20)
[2019-03-09] MEDS: FLUTICASONE 50 MCG NASAL SPRAY 16 GM BOTTLE BOTH NARES SCH (08:18)
[2019-03-09] MEDS: Fluticasone Furoate-Vilanterol [Breo Ellipta] 1 PUFF INH SCH (08:18)
[2019-03-09] MEDS: MAGNESIUM CHLORIDE 64 MG TABLET PO SCH ×3 (08:28→21:20)
[2019-03-09] MEDS: PROMETHAZINE 25 MG/1 ML VIAL IM PRN (08:45)
[2019-03-09] MEDS: MAGNESIUM SULF RIDER 4 GM in PREMIX 1 EACH IV PRN ×2 (10:43→23:30)
[2019-03-09 15:54] LABS: Basophils # 0.1 10*3/uL (0.0-0.2); Basophils % 0.2 % (0.0-0.8); Hematocrit 29.9 VOL% (42.0-52.0); Hemoglobin 9.6 GM/DL (14.0-18.0); Immature Granulocytes % 2.9 %; Immature Granulocytes Absolute 0.82 #; Lymphocytes # 0.2 10*3/uL (1.4-4.0); Lymphocytes % 0.8 % (21.2-54.2); Mean Corpuscular HGB Conc 32.1 GM/DL (32-36); Mean Corpuscular Volume 97.7 FL (87-102); Mean Platelet Volume 10.3 FL (9.6-12.0); Monocytes % 3.8 % (1.7-12.7); Neutrophils % 92.3 % (38.7-73.9); Platelet Count 185 T/CUMM (130-400); Red Blood Count 3.06 MC/CUMM (3.8-5.5); Red Cell Distribution Width 20.9 % (9.3-17.3)
[2019-03-09 15:57] LABS: White Blood Count 28.5 T/CUMM (4-12)
[2019-03-09] MEDS: ENOXAPARIN 40 MG/0.4 ML SYRINGE SUBCUT SCH (16:57)
[2019-03-09 20:06] LABS: Lymphocytes 1 % (20-55); Segmented Neutrophils 95 % (50-85); Total Cells Counted 100
[2019-03-09 20:07] LABS: Anisocytosis 2+; Hypochromasia 1+; Macrocytosis 1+; Polychromasia 1+
[2019-03-09 20:08] LABS: Acanthocytes Few; Tear Drop Cells Few
[2019-03-09 20:09] LABS: Ovalocytes 1+; Target Cells Few
[2019-03-09 20:10] LABS: Platelet Estimate Normal
[2019-03-09] MEDS: rOPINIRole 0.25 MG TABLET PO SCH (21:20)
[2019-03-10] MEDS: PROMETHAZINE 25 MG TABLET PO SCH (06:25)
[2019-03-10 06:28] LABS: Basophils % 0.2 % (0.0-0.8); Hematocrit 28.1 VOL% (42.0-52.0); Hemoglobin 9.2 GM/DL (14.0-18.0); Immature Granulocytes % 3.7 %; Immature Granulocytes Absolute 0.76 #; Lymphocytes # 0.5 10*3/uL (1.4-4.0); Lymphocytes % 2.4 % (21.2-54.2); Mean Corpuscular HGB Conc 32.7 GM/DL (32-36); Mean Corpuscular Volume 95.6 FL (87-102); Mean Platelet Volume 10.9 FL (9.6-12.0); Monocytes % 4.1 % (1.7-12.7); NRBC # 0.02 10*3/uL; Neutrophils % 89.6 % (38.7-73.9); Platelet Count 175 T/CUMM (130-400); Red Blood Count 2.94 MC/CUMM (3.8-5.5); Red Cell Distribution Width 20.6 % (9.3-17.3); White Blood Count 20.3 T/CUMM (4-12)
[2019-03-10 06:51] LABS: Band Neutrophils 1 % (0-10); Lymphocytes 1 % (20-55); Platelet Estimate Adequate; Segmented Neutrophils 96 % (50-85); Total Cells Counted 100
[2019-03-10 06:52] LABS: Hypochromasia Slight; Macrocytosis Slight
[2019-03-10 07:06] LABS: Calcium 6.3 MG/DL (8.5-10.1); Osmolality,Calculated 289.4 MOS/KG (273-304)
[2019-03-10] MEDS: CHOLESTYRAMINE 4 GM PACK PO SCH ×3 (08:45→21:00)
[2019-03-10] MEDS: COLESEVELAM 625 MG TABLET PO SCH ×2 (08:46→18:27)
[2019-03-10] MEDS: MULTIVITAMIN (CENTRUM) TABLET PO SCH (08:46)
[2019-03-10] MEDS: MAGNESIUM CHLORIDE 64 MG TABLET PO SCH ×3 (08:46→21:00)
[2019-03-10] MEDS: CALCIUM (CARBONATE)/VITAMIN D 500 MG-200 UNIT TABLET PO SCH ×2 (08:46→21:01)
[2019-03-10] MEDS: PANTOPRAZOLE 40 MG TABLET PO SCH (08:46)
[2019-03-10] MEDS: MAGNESIUM SULF RIDER 2 GM in PREMIX 1 EACH IV PRN (08:46)
[2019-03-10] MEDS: predniSONE 20 MG TABLET PO SCH (08:46)
[2019-03-10] MEDS: Fluticasone Furoate-Vilanterol [Breo Ellipta] 1 PUFF INH SCH (08:47)
[2019-03-10] MEDS: WHEAT DEXTRIN POWDER 244 GM BOTTLE PO SCH ×3 (08:47→21:00)
[2019-03-10] MEDS: FLUTICASONE 50 MCG NASAL SPRAY 16 GM BOTTLE BOTH NARES SCH (08:47)
[2019-03-10] MEDS: ESCITALOPRAM 10 MG TABLET PO SCH (08:47)
[2019-03-10] MEDS: DIPHENOXYLATE/ATROPINE 2.5-0.025 MG TABLET PO SCH ×4 (08:47→21:01)
[2019-03-10] MEDS: POTASSIUM CHLORIDE 20 MEQ TABLET PO SCH ×2 (08:48→21:01)
[2019-03-10] MEDS: POTASSIUM CHLORIDE RIDER 20 MEQ in PREMIX 1 EACH IV PRN ×2 (16:16→23:00)
[2019-03-10] MEDS: ENOXAPARIN 40 MG/0.4 ML SYRINGE SUBCUT SCH (16:17)
[2019-03-10] MEDS: rOPINIRole 0.25 MG TABLET PO SCH (21:01)
[2019-03-11] MEDS: PROMETHAZINE 25 MG TABLET PO SCH (06:25)
[2019-03-11 07:49] LABS: Basophils % 0.2 % (0.0-0.8); Hematocrit 26.4 VOL% (42.0-52.0); Hemoglobin 8.5 GM/DL (14.0-18.0); Immature Granulocytes % 1.8 %; Immature Granulocytes Absolute 0.31 #; Lymphocytes # 0.4 10*3/uL (1.4-4.0); Lymphocytes % 2.2 % (21.2-54.2); Mean Corpuscular HGB Conc 32.2 GM/DL (32-36); Mean Corpuscular Volume 96.7 FL (87-102); Mean Platelet Volume 10.5 FL (9.6-12.0); Monocytes % 4.1 % (1.7-12.7); NRBC # 0.02 10*3/uL; Neutrophils % 91.7 % (38.7-73.9); Platelet Count 152 T/CUMM (130-400); Red Blood Count 2.73 MC/CUMM (3.8-5.5); White Blood Count 17.4 T/CUMM (4-12)
[2019-03-11 08:06] LABS: Albumin 1.8 G/DL (3.4-5.0); Calcium 6.3 MG/DL (8.5-10.1); Total Protein 5.3 G/DL (6.4-8.3)
[2019-03-11] MEDS ORDERED: DEXTROSE 10% 250 ML BAG IV PRN (08:36)
[2019-03-11 08:46] LABS: Band Neutrophils 1 % (0-10); Lymphocytes 2 % (20-55); Nucleated Red Blood Cells 2 (0-5); Segmented Neutrophils 93 % (50-85); Total Cells Counted 100
[2019-03-11 08:47] LABS: Anisocytosis 2+; Macrocytosis 1+; Platelet Estimate Normal
[2019-03-11] MEDS: MAGNESIUM SULF RIDER 4 GM in PREMIX 1 EACH IV PRN (10:24)
[2019-03-11] MEDS: COLESEVELAM 625 MG TABLET PO SCH ×2 (10:24→17:26)
[2019-03-11] MEDS: CHOLESTYRAMINE 4 GM PACK PO SCH ×3 (10:24→20:51)
[2019-03-11] MEDS: MULTIVITAMIN (CENTRUM) TABLET PO SCH (10:25)
[2019-03-11] MEDS: POTASSIUM CHLORIDE 20 MEQ TABLET PO SCH ×2 (10:25→20:51)
[2019-03-11] MEDS: ESCITALOPRAM 10 MG TABLET PO SCH (10:25)
[2019-03-11] MEDS: MAGNESIUM CHLORIDE 64 MG TABLET PO SCH ×3 (10:25→20:50)
[2019-03-11] MEDS: predniSONE 20 MG TABLET PO SCH (10:26)
[2019-03-11] MEDS: DIPHENOXYLATE/ATROPINE 2.5-0.025 MG TABLET PO SCH ×4 (10:26→20:51)
[2019-03-11] MEDS: CALCIUM (CARBONATE)/VITAMIN D 500 MG-200 UNIT TABLET PO SCH ×2 (10:26→20:51)
[2019-03-11] MEDS: FLUTICASONE 50 MCG NASAL SPRAY 16 GM BOTTLE BOTH NARES SCH (10:26)
[2019-03-11] MEDS: WHEAT DEXTRIN POWDER 244 GM BOTTLE PO SCH ×4 (10:26→20:50)
[2019-03-11] MEDS: PANTOPRAZOLE 40 MG TABLET PO SCH (10:26)
[2019-03-11] MEDS: Fluticasone Furoate-Vilanterol [Breo Ellipta] 1 PUFF INH SCH (10:27)
[2019-03-11] MEDS ORDERED: SILVER NITRATE STICK 1 EACH TOP ONE (11:44)
[2019-03-11] MEDS: ENOXAPARIN 40 MG/0.4 ML SYRINGE SUBCUT SCH (15:44)
[2019-03-11] MEDS: rOPINIRole 0.25 MG TABLET PO SCH (20:51)
[2019-03-12 05:59] LABS: Basophils % 0.1 % (0.0-0.8); Hemoglobin 8.2 GM/DL (14.0-18.0); Immature Granulocytes % 1.7 %; Immature Granulocytes Absolute 0.28 #; Lymphocytes # 0.3 10*3/uL (1.4-4.0); Mean Corpuscular HGB Conc 32.8 GM/DL (32-36); Mean Corpuscular Volume 96.9 FL (87-102); Mean Platelet Volume 11.1 FL (9.6-12.0); Neutrophils % 92.2 % (38.7-73.9); Platelet Count 141 T/CUMM (130-400); Red Blood Count 2.58 MC/CUMM (3.8-5.5); Red Cell Distribution Width 20.8 % (9.3-17.3); White Blood Count 16.9 T/CUMM (4-12)
[2019-03-12] MEDS: PROMETHAZINE 25 MG TABLET PO SCH (06:25)
[2019-03-12 06:28] LABS: Nucleated Red Blood Cells 2 (0-5); Segmented Neutrophils 98 % (50-85); Total Cells Counted 100
[2019-03-12 06:29] LABS: Anisocytosis 1+; Hypochromasia 1+; Ovalocytes Few; Platelet Estimate Adequate; Target Cells 1+
[2019-03-12 06:36] LABS: Calcium 6.4 MG/DL (8.5-10.1)
[2019-03-12] MEDS: DIPHENOXYLATE/ATROPINE 2.5-0.025 MG TABLET PO SCH ×4 (08:51→21:20)
[2019-03-12] MEDS: COLESEVELAM 625 MG TABLET PO SCH ×2 (08:52→19:15)
[2019-03-12] MEDS: ESCITALOPRAM 10 MG TABLET PO SCH (08:52)
[2019-03-12] MEDS: MAGNESIUM CHLORIDE 64 MG TABLET PO SCH ×3 (08:52→21:20)
[2019-03-12] MEDS: MULTIVITAMIN (CENTRUM) TABLET PO SCH (08:52)
[2019-03-12] MEDS: CALCIUM (CARBONATE)/VITAMIN D 500 MG-200 UNIT TABLET PO SCH ×2 (08:52→21:20)
[2019-03-12] MEDS: predniSONE 20 MG TABLET PO SCH (08:52)
[2019-03-12] MEDS: Fluticasone Furoate-Vilanterol [Breo Ellipta] 1 PUFF INH SCH (08:53)
[2019-03-12] MEDS: POTASSIUM CHLORIDE 20 MEQ TABLET PO SCH ×2 (08:53→21:20)
[2019-03-12] MEDS: FLUTICASONE 50 MCG NASAL SPRAY 16 GM BOTTLE BOTH NARES SCH (08:53)
[2019-03-12] MEDS: PANTOPRAZOLE 40 MG TABLET PO SCH (08:53)
[2019-03-12] MEDS: CHOLESTYRAMINE 4 GM PACK PO SCH ×3 (08:54→21:21)
[2019-03-12] MEDS: MAGNESIUM SULF RIDER 4 GM in PREMIX 1 EACH IV PRN (10:43)
[2019-03-12] MEDS: WHEAT DEXTRIN POWDER 244 GM BOTTLE PO SCH ×3 (11:06→21:21)
[2019-03-12] MEDS ORDERED: MENTHOL/ZINC OXIDE OINT 71 GM JAR TOP PRN (11:13)
[2019-03-12] MEDS: ENOXAPARIN 40 MG/0.4 ML SYRINGE SUBCUT SCH (15:49)
[2019-03-12] MEDS ORDERED: KETOROLAC 15 MG/1 ML VIAL IM ONE (17:17)
[2019-03-12] MEDS: rOPINIRole 0.25 MG TABLET PO SCH (21:20)
[2019-03-13] MEDS: PROMETHAZINE 25 MG TABLET PO SCH (06:18)
[2019-03-13] MEDS: COLESEVELAM 625 MG TABLET PO SCH ×2 (09:56→18:24)
[2019-03-13] MEDS: CHOLESTYRAMINE 4 GM PACK PO SCH ×3 (09:56→22:24)
[2019-03-13] MEDS: predniSONE 20 MG TABLET PO SCH (09:57)
[2019-03-13] MEDS: DIPHENOXYLATE/ATROPINE 2.5-0.025 MG TABLET PO SCH ×4 (09:57→22:23)
[2019-03-13] MEDS: MAGNESIUM CHLORIDE 64 MG TABLET PO SCH ×3 (09:57→22:22)
[2019-03-13] MEDS: ESCITALOPRAM 10 MG TABLET PO SCH (09:57)
[2019-03-13] MEDS: POTASSIUM CHLORIDE 20 MEQ TABLET PO SCH ×2 (09:57→22:23)
[2019-03-13] MEDS: MULTIVITAMIN (CENTRUM) TABLET PO SCH (09:57)
[2019-03-13] MEDS: CALCIUM (CARBONATE)/VITAMIN D 500 MG-200 UNIT TABLET PO SCH ×2 (09:57→22:23)
[2019-03-13] MEDS: Fluticasone Furoate-Vilanterol [Breo Ellipta] 1 PUFF INH SCH (10:07)
[2019-03-13] MEDS: FLUTICASONE 50 MCG NASAL SPRAY 16 GM BOTTLE BOTH NARES SCH (10:07)
[2019-03-13] MEDS: WHEAT DEXTRIN POWDER 244 GM BOTTLE PO SCH ×3 (10:08→22:24)
[2019-03-13] MEDS: PANTOPRAZOLE 40 MG TABLET PO SCH (10:08)
[2019-03-13] MEDS: MUPIROCIN 2% OINT 22 GM TUBE TOP SCH ×2 (14:10→22:24)
[2019-03-13] MEDS: NYSTATIN POWDER 15 GM BOTTLE TOP SCH ×2 (14:10→22:24)
[2019-03-13] MEDS: rOPINIRole 0.25 MG TABLET PO SCH (22:23)
[2019-03-14] MEDS: PROMETHAZINE 25 MG TABLET PO SCH (06:04)
[2019-03-14] MEDS ORDERED: DIPHENOXYLATE/ATROPINE 2.5-0.025 MG TABLET PO PRN (08:46)
[2019-03-14] MEDS: MAGNESIUM CHLORIDE 64 MG TABLET PO SCH (10:06)
[2019-03-14] MEDS: ESCITALOPRAM 10 MG TABLET PO SCH (10:06)
[2019-03-14] MEDS: COLESEVELAM 625 MG TABLET PO SCH (10:06)
[2019-03-14] MEDS: CALCIUM (CARBONATE)/VITAMIN D 500 MG-200 UNIT TABLET PO SCH (10:06)
[2019-03-14] MEDS: predniSONE 20 MG TABLET PO SCH (10:07)
[2019-03-14] MEDS: MULTIVITAMIN (CENTRUM) TABLET PO SCH (10:07)
[2019-03-14] MEDS: PANTOPRAZOLE 40 MG TABLET PO SCH (10:07)
[2019-03-14] MEDS: CHOLESTYRAMINE 4 GM PACK PO SCH (10:07)
[2019-03-14] MEDS: POTASSIUM CHLORIDE 20 MEQ TABLET PO SCH (10:07)
[2019-03-14] MEDS: FLUTICASONE 50 MCG NASAL SPRAY 16 GM BOTTLE BOTH NARES SCH (10:09)
[2019-03-14] MEDS: Fluticasone Furoate-Vilanterol [Breo Ellipta] 1 PUFF INH SCH (10:10)
[2019-03-14] MEDS: WHEAT DEXTRIN POWDER 244 GM BOTTLE PO SCH (10:10)
[2019-03-14] MEDS: MUPIROCIN 2% OINT 22 GM TUBE TOP SCH (10:10)
[2019-03-14] MEDS: NYSTATIN POWDER 15 GM BOTTLE TOP SCH (10:10)
[2019-03-14 12:47] VITALS: BP 106/78
[2019-03-14] MEDS ORDERED: HEPARIN LOCK FLUSH 500 UNIT/5 ML SYRINGE IV ONE (13:19)
== END 2019-03-14 14:25 | disposition swing bed (61) | DRG 392 ==
LOC: EDBD → EDUNIT# → N.ED 12:21 → SUATTDRO 16:21 → N.EDINP 16:21 → N.TELES 16:46 → N.4E 02-22 17:16 → N.CC 02-24 12:45 → N.4E 02-27 11:35
PROVIDERS: ADMIT Internal Medicine; ATTEND Internal Medicine

== ENCOUNTER 2019-03-20 18:47 | Inpatient (IN) ==
[2019-03-20] MEDS ORDERED: ASPIRIN 325 MG TABLET PO STA (19:20)
[2019-03-20] MEDS ORDERED: ALUM/MAG/SIMETH/LIDO VISC 1:1 30 ML BOTTLE PO STA (19:20)
[2019-03-20] MEDS ORDERED: SODIUM CHLORIDE 0.9% 500 ML IV STA ×2 (19:20→20:09)
[2019-03-20 19:27] LABS: Basophils % 0.1 % (0.0-0.8); Eosinophils # 0.1 10*3/uL (0.0-0.87); Eosinophils % 0.8 % (0.00-10.9); Hematocrit 23.7 VOL% (42.0-52.0); Hemoglobin 7.6 GM/DL (14.0-18.0); Immature Granulocytes % 1.1 %; Immature Granulocytes Absolute 0.11 #; Lymphocytes # 0.6 10*3/uL (1.4-4.0); Lymphocytes % 5.6 % (21.2-54.2); Mean Corpuscular HGB Conc 32.1 GM/DL (32-36); Mean Corpuscular Volume 94.8 FL (87-102); Mean Platelet Volume 11.1 FL (9.6-12.0); Monocytes % 4.4 % (1.7-12.7); Platelet Count 230 T/CUMM (130-400); Red Cell Distribution Width 19.7 % (9.3-17.3); White Blood Count 10.3 T/CUMM (4-12)
[2019-03-20 19:35] LABS: INR 2.7
[2019-03-20 19:36] LABS: PT Patient Result 28.7 SECS
[2019-03-20 19:47] LABS: Albumin 1.9 G/DL (3.4-5.0); Bilirubin,Total 3.1 MG/DL (0.2-1.0); Osmolality,Calculated 280.1 MOS/KG (273-304); Total Protein 5.9 G/DL (6.4-8.3)
[2019-03-20 19:53] LABS: Calcium 5.2 MG/DL (8.5-10.1)
[2019-03-20 20:03] LABS: Apearance,Urine CLEAR (Clear); Bilirubin,Urine Negative (Negative); Blood, Urine Negative (Negative); Glucose,Urine (UA) Negative (Negative); Ketones,Urine Negative (Negative); Mucus,Urine Occasional /LPF (Occasional); Nitrite,Urine Negative (Negative); Protein,Urine Negative; RBC,Urine 9 /HPF (0-4); Squamous Epithelial Cell,Urine Occasional /HPF (0-10); Urine Color Amber (Yellow); Urine Urobilinogen < 2.0 EU/DL (0.2-1.0); WBC,Urine 12 /HPF (0-6)
[2019-03-20] MEDS ORDERED: CALCIUM CHLORIDE 1,000 MG/10 ML SYRINGE IV STA (20:07)
[2019-03-20] MEDS ORDERED: MAGNESIUM SULF RIDER 2 GM in PREMIX 1 EACH IV STA (20:13)
[2019-03-20] MEDS ORDERED: cefTRIAXone 1,000 MG in SODIUM CHLORIDE 0.9% 100 ML IV STA (20:15)
[2019-03-20] MEDS ORDERED: PROMETHAZINE 25 MG/1 ML VIAL IM PRN (22:50)
[2019-03-20] MEDS ORDERED: ONDANSETRON 4 MG/2 ML VIAL IV PRN (22:50)
[2019-03-20] MEDS ORDERED: MENTHOL/ZINC OXIDE OINT 71 GM JAR TOP PRN (22:50)
[2019-03-20] MEDS ORDERED: LOPERAMIDE 2 MG CAPSULE PO PRN (22:50)
[2019-03-20 23:38] LABS: Calcium 6.3 MG/DL (8.5-10.1)
[2019-03-20] MEDS: LEVOFLOXACIN INJ 750 MG in PREMIX 1 EACH IV SCH (23:38)
[2019-03-20] MEDS: SODIUM CHLORIDE 0.9% 1,000 ML IV SCH (23:38)
[2019-03-20] MEDS: DRONABINOL 2.5 MG CAPSULE PO SCH (23:39)
[2019-03-20] MEDS: POTASSIUM CHLORIDE 20 MEQ TABLET PO SCH (23:39)
[2019-03-20] MEDS: rOPINIRole 0.25 MG TABLET PO SCH (23:39)
[2019-03-20] MEDS: NYSTATIN POWDER 15 GM BOTTLE TOP SCH (23:39)
[2019-03-20] MEDS: CALCIUM (CARBONATE)/VITAMIN D 500 MG-200 UNIT TABLET PO SCH (23:39)
[2019-03-21] MEDS: MAGNESIUM SULF RIDER 4 GM in PREMIX 1 EACH IV PRN (01:55)
[2019-03-21 05:12] LABS: Basophils % 0.1 % (0.0-0.8); Eosinophils # 0.1 10*3/uL (0.0-0.87); Eosinophils % 0.7 % (0.00-10.9); Hemoglobin 7.1 GM/DL (14.0-18.0); Immature Granulocytes % 1.1 %; Immature Granulocytes Absolute 0.09 #; Lymphocytes # 0.4 10*3/uL (1.4-4.0); Lymphocytes % 5.1 % (21.2-54.2); Mean Corpuscular HGB Conc 32.3 GM/DL (32-36); Mean Corpuscular Volume 94.4 FL (87-102); Platelet Count 190 T/CUMM (130-400); Red Blood Count 2.33 MC/CUMM (3.8-5.5); White Blood Count 8.5 T/CUMM (4-12)
[2019-03-21 05:40] LABS: Albumin 1.8 G/DL (3.4-5.0); Bilirubin,Total 3.1 MG/DL (0.2-1.0); Calcium 6.2 MG/DL (8.5-10.1); Osmolality,Calculated 278.3 MOS/KG (273-304); Total Protein 6.1 G/DL (6.4-8.3)
[2019-03-21] MEDS ORDERED: Fluticasone Furoate-Vilanterol [Breo Ellipta] INH SCH (09:00)
[2019-03-21] MEDS: MAGNESIUM SULF RIDER 2 GM in PREMIX 1 EACH IV PRN (09:28)
[2019-03-21] MEDS: CHOLESTYRAMINE 4 GM PACK PO SCH ×3 (09:29→21:16)
[2019-03-21] MEDS: PANTOPRAZOLE 40 MG TABLET PO SCH (09:38)
[2019-03-21] MEDS: ESCITALOPRAM 10 MG TABLET PO SCH (09:38)
[2019-03-21] MEDS: DIPHENOXYLATE/ATROPINE 2.5-0.025 MG TABLET PO SCH ×4 (09:38→21:15)
[2019-03-21] MEDS: MAGNESIUM CHLORIDE 64 MG TABLET PO SCH ×3 (09:39→21:15)
[2019-03-21] MEDS: DRONABINOL 2.5 MG CAPSULE PO SCH ×2 (09:39→21:15)
[2019-03-21] MEDS: CALCIUM (CARBONATE)/VITAMIN D 500 MG-200 UNIT TABLET PO SCH ×2 (09:40→21:15)
[2019-03-21] MEDS: COLESEVELAM 625 MG TABLET PO SCH ×2 (09:40→16:30)
[2019-03-21] MEDS: POTASSIUM CHLORIDE 20 MEQ TABLET PO SCH ×2 (09:40→21:15)
[2019-03-21] MEDS: MULTIVITAMIN (CENTRUM) TABLET PO SCH (09:42)
[2019-03-21] MEDS: WHEAT DEXTRIN POWDER 244 GM BOTTLE PO SCH ×3 (09:43→21:17)
[2019-03-21] MEDS: NYSTATIN POWDER 15 GM BOTTLE TOP SCH ×2 (09:43→21:16)
[2019-03-21] MEDS: FLUTICASONE 50 MCG NASAL SPRAY 16 GM BOTTLE BOTH NARES SCH (09:43)
[2019-03-21] MEDS: SODIUM CHLORIDE 0.9% 1,000 ML IV SCH (14:50)
[2019-03-21] MEDS: ACETAMINOPHEN 325 MG TABLET PO PRN ×2 (16:28→21:16)
[2019-03-21] MEDS: cefTRIAXone 1,000 MG in SYRINGE 1 EACH IV SCH (17:29)
[2019-03-21] MEDS: LORazepam 0.5 MG TABLET PO PRN (17:46)
[2019-03-21] MEDS ORDERED: SODIUM CHLORIDE 0.9% 1,000 ML IV PRN (18:00)
[2019-03-21] MEDS: rOPINIRole 0.25 MG TABLET PO SCH (21:14)
[2019-03-22] MEDS: LEVOFLOXACIN INJ 750 MG in PREMIX 1 EACH IV SCH ×2 (02:59→22:13)
[2019-03-22] MEDS: SODIUM CHLORIDE 0.9% 1,000 ML IV SCH ×4 (03:01→23:14)
[2019-03-22 04:23] LABS: Basophils % 0.3 % (0.0-0.8); Eosinophils # 0.1 10*3/uL (0.0-0.87); Hematocrit 26.2 VOL% (42.0-52.0); Hemoglobin 8.6 GM/DL (14.0-18.0); Immature Granulocytes % 1.4 %; Immature Granulocytes Absolute 0.11 #; Lymphocytes # 0.5 10*3/uL (1.4-4.0); Lymphocytes % 5.9 % (21.2-54.2); Mean Corpuscular HGB Conc 32.8 GM/DL (32-36); Mean Corpuscular Volume 91.3 FL (87-102); Monocytes % 5.7 % (1.7-12.7); Neutrophils % 85.7 % (38.7-73.9); Platelet Count 197 T/CUMM (130-400); Red Blood Count 2.87 MC/CUMM (3.8-5.5); Red Cell Distribution Width 18.5 % (9.3-17.3); White Blood Count 7.8 T/CUMM (4-12)
[2019-03-22 04:43] LABS: Albumin 1.7 G/DL (3.4-5.0); Bilirubin,Total 3.5 MG/DL (0.2-1.0); Calcium 6.9 MG/DL (8.5-10.1); Osmolality,Calculated 281.1 MOS/KG (273-304); Total Protein 5.8 G/DL (6.4-8.3)
[2019-03-22] MEDS: MAGNESIUM SULF RIDER 4 GM in PREMIX 1 EACH IV PRN (05:09)
[2019-03-22] MEDS ORDERED: PROMETHAZINE 25 MG TABLET PO ONE (08:00)
[2019-03-22] MEDS: NYSTATIN POWDER 15 GM BOTTLE TOP SCH ×2 (10:03→22:14)
[2019-03-22] MEDS: WHEAT DEXTRIN POWDER 244 GM BOTTLE PO SCH ×3 (10:03→22:04)
[2019-03-22] MEDS: CHOLESTYRAMINE 4 GM PACK PO SCH ×3 (10:03→21:58)
[2019-03-22] MEDS: COLESEVELAM 625 MG TABLET PO SCH ×2 (10:04→16:29)
[2019-03-22] MEDS: CALCIUM (CARBONATE)/VITAMIN D 500 MG-200 UNIT TABLET PO SCH ×2 (10:04→22:01)
[2019-03-22] MEDS: ESCITALOPRAM 10 MG TABLET PO SCH (10:04)
[2019-03-22] MEDS: MULTIVITAMIN (CENTRUM) TABLET PO SCH (10:04)
[2019-03-22] MEDS: MAGNESIUM CHLORIDE 64 MG TABLET PO SCH ×3 (10:04→22:00)
[2019-03-22] MEDS: DRONABINOL 2.5 MG CAPSULE PO SCH ×2 (10:04→22:00)
[2019-03-22] MEDS: PANTOPRAZOLE 40 MG TABLET PO SCH (10:05)
[2019-03-22] MEDS: POTASSIUM CHLORIDE 20 MEQ TABLET PO SCH ×2 (10:05→22:02)
[2019-03-22] MEDS: DIPHENOXYLATE/ATROPINE 2.5-0.025 MG TABLET PO SCH ×4 (10:05→22:01)
[2019-03-22] MEDS: FLUTICASONE 50 MCG NASAL SPRAY 16 GM BOTTLE BOTH NARES SCH (10:05)
[2019-03-22] MEDS: MICAFUNGIN 100 MG in SODIUM CHLORIDE 0.9% 100 ML IV SCH (10:11)
[2019-03-22] MEDS: ACETAMINOPHEN 325 MG TABLET PO PRN (16:29)
[2019-03-22] MEDS: cefTRIAXone 1,000 MG in SYRINGE 1 EACH IV SCH (16:30)
[2019-03-22] MEDS: rOPINIRole 0.25 MG TABLET PO SCH (22:01)
[2019-03-23 06:05] LABS: Basophils % 0.1 % (0.0-0.8); Eosinophils # 0.1 10*3/uL (0.0-0.87); Eosinophils % 0.8 % (0.00-10.9); Hematocrit 25.7 VOL% (42.0-52.0); Hemoglobin 8.5 GM/DL (14.0-18.0); Immature Granulocytes % 1.1 %; Immature Granulocytes Absolute 0.09 #; Lymphocytes # 0.3 10*3/uL (1.4-4.0); Lymphocytes % 3.7 % (21.2-54.2); Mean Corpuscular HGB Conc 33.1 GM/DL (32-36); Mean Corpuscular Volume 90.5 FL (87-102); Mean Platelet Volume 11.2 FL (9.6-12.0); Monocytes % 7.5 % (1.7-12.7); Neutrophils % 86.8 % (38.7-73.9); Platelet Count 297 T/CUMM (130-400); Red Blood Count 2.84 MC/CUMM (3.8-5.5); Red Cell Distribution Width 19.1 % (9.3-17.3); White Blood Count 7.9 T/CUMM (4-12)
[2019-03-23] MEDS: PROMETHAZINE 25 MG TABLET PO SCH (06:18)
[2019-03-23 06:25] LABS: Alanine Aminotransferase 71 U/L (16-61); Albumin 1.7 G/DL (3.4-5.0); Alkaline Phosphatase 333 U/L (45-117); Aspartate Amino Transferase 68 U/L (0-37); Blood Urea Nitrogen 6 MG/DL (7-18); Calcium 7.5 MG/DL (8.5-10.1); Glucose 81 MG/DL (74-106); Osmolality,Calculated 288.4 MOS/KG (273-304)
[2019-03-23 06:31] LABS: Band Neutrophils 3 % (0-10); Hypochromasia 1+; Lymphocytes 2 % (20-55); Platelet Estimate Adequate; Segmented Neutrophils 88 % (50-85); Total Cells Counted 100
[2019-03-23] MEDS: WHEAT DEXTRIN POWDER 244 GM BOTTLE PO SCH ×3 (09:14→21:55)
[2019-03-23] MEDS: CALCIUM (CARBONATE)/VITAMIN D 500 MG-200 UNIT TABLET PO SCH ×2 (09:18→21:53)
[2019-03-23] MEDS: MICAFUNGIN 100 MG in SODIUM CHLORIDE 0.9% 100 ML IV SCH (09:18)
[2019-03-23] MEDS: COLESEVELAM 625 MG TABLET PO SCH (09:18)
[2019-03-23] MEDS: MAGNESIUM CHLORIDE 64 MG TABLET PO SCH ×3 (09:18→22:07)
[2019-03-23] MEDS: PANTOPRAZOLE 40 MG TABLET PO SCH (09:19)
[2019-03-23] MEDS: ESCITALOPRAM 10 MG TABLET PO SCH (09:19)
[2019-03-23] MEDS: DRONABINOL 2.5 MG CAPSULE PO SCH ×2 (09:19→21:53)
[2019-03-23] MEDS: MULTIVITAMIN (CENTRUM) TABLET PO SCH (09:19)
[2019-03-23] MEDS: POTASSIUM CHLORIDE 20 MEQ TABLET PO SCH ×2 (09:19→21:53)
[2019-03-23] MEDS: FLUTICASONE 50 MCG NASAL SPRAY 16 GM BOTTLE BOTH NARES SCH (09:20)
[2019-03-23] MEDS: SODIUM CHLORIDE 0.9% 1,000 ML IV SCH (09:24)
[2019-03-23] MEDS: NYSTATIN POWDER 15 GM BOTTLE TOP SCH ×2 (09:24→21:56)
[2019-03-23] MEDS: DIPHENOXYLATE/ATROPINE 2.5-0.025 MG TABLET PO SCH (10:16)
[2019-03-23] MEDS: CHOLESTYRAMINE 4 GM PACK PO SCH (10:17)
[2019-03-23] MEDS ORDERED: ALUMINUM/MAGNES/SIMETH MAX STR 30 ML UDCUP PO PRN (10:28)
[2019-03-23] MEDS: MAGNESIUM SULF RIDER 2 GM in PREMIX 1 EACH IV PRN ×2 (10:38→12:40)
[2019-03-23] MEDS: LORazepam 0.5 MG TABLET PO PRN (11:36)
[2019-03-23] MEDS: SODIUM CHLORIDE 0.45% 1,000 ML IV SCH (15:03)
[2019-03-23] MEDS: cefTRIAXone 1,000 MG in SYRINGE 1 EACH IV SCH (18:13)
[2019-03-23] MEDS: ACETAMINOPHEN 325 MG TABLET PO PRN (20:40)
[2019-03-23] MEDS: rOPINIRole 0.25 MG TABLET PO SCH (21:52)
[2019-03-23] MEDS: LEVOFLOXACIN INJ 750 MG in PREMIX 1 EACH IV SCH (23:17)
[2019-03-24 05:43] LABS: Basophils % 0.3 % (0.0-0.8); Eosinophils # 0.1 10*3/uL (0.0-0.87); Eosinophils % 1.2 % (0.00-10.9); Hematocrit 25.3 VOL% (42.0-52.0); Hemoglobin 8.1 GM/DL (14.0-18.0); Immature Granulocytes % 1.2 %; Immature Granulocytes Absolute 0.11 #; Lymphocytes # 0.7 10*3/uL (1.4-4.0); Lymphocytes % 7.8 % (21.2-54.2); Mean Corpuscular Volume 90.4 FL (87-102); Mean Platelet Volume 10.7 FL (9.6-12.0); Monocytes % 7.9 % (1.7-12.7); Neutrophils % 81.6 % (38.7-73.9); Platelet Count 376 T/CUMM (130-400); Red Cell Distribution Width 19.4 % (9.3-17.3); White Blood Count 8.8 T/CUMM (4-12)
[2019-03-24] MEDS: PROMETHAZINE 25 MG TABLET PO SCH (05:56)
[2019-03-24] MEDS: SODIUM CHLORIDE 0.45% 1,000 ML IV SCH ×3 (05:57→11:40)
[2019-03-24 06:04] LABS: Albumin 1.5 G/DL (3.4-5.0); Bilirubin,Total 3.8 MG/DL (0.2-1.0); Calcium 7.8 MG/DL (8.5-10.1); Osmolality,Calculated 277.1 MOS/KG (273-304); Total Protein 5.7 G/DL (6.4-8.3)
[2019-03-24] MEDS: ESCITALOPRAM 10 MG TABLET PO SCH (09:33)
[2019-03-24] MEDS: DRONABINOL 2.5 MG CAPSULE PO SCH ×2 (09:34→21:16)
[2019-03-24] MEDS: MAGNESIUM CHLORIDE 64 MG TABLET PO SCH ×3 (09:35→21:16)
[2019-03-24] MEDS: PANTOPRAZOLE 40 MG TABLET PO SCH (09:36)
[2019-03-24] MEDS: MULTIVITAMIN (CENTRUM) TABLET PO SCH (09:36)
[2019-03-24] MEDS: POTASSIUM CHLORIDE 20 MEQ TABLET PO SCH ×2 (09:37→21:16)
[2019-03-24] MEDS: CALCIUM (CARBONATE)/VITAMIN D 500 MG-200 UNIT TABLET PO SCH ×2 (09:37→21:16)
[2019-03-24] MEDS: FLUTICASONE 50 MCG NASAL SPRAY 16 GM BOTTLE BOTH NARES SCH (09:39)
[2019-03-24] MEDS: NYSTATIN POWDER 15 GM BOTTLE TOP SCH (09:39)
[2019-03-24] MEDS: WHEAT DEXTRIN POWDER 244 GM BOTTLE PO SCH ×3 (10:40→21:17)
[2019-03-24] MEDS: MICAFUNGIN 100 MG in SODIUM CHLORIDE 0.9% 100 ML IV SCH (10:49)
[2019-03-24] MEDS ORDERED: SODIUM CHLORIDE 0.9% 1,000 ML IV PRN (12:58)
[2019-03-24] MEDS: LORazepam 0.5 MG TABLET PO PRN (13:39)
[2019-03-24] MEDS ORDERED: SKIN HEALING OINT (AQUAPHOR) 50 GM TUBE TOP PRN (14:36)
[2019-03-24] MEDS: cefTRIAXone 1,000 MG in SYRINGE 1 EACH IV SCH (18:49)
[2019-03-24] MEDS: rOPINIRole 0.25 MG TABLET PO SCH (21:16)
[2019-03-25] MEDS: LEVOFLOXACIN INJ 750 MG in PREMIX 1 EACH IV SCH ×2 (00:17→22:51)
[2019-03-25] MEDS: DEXTROSE 5% NACL 0.45% 1,000 ML IV SCH ×4 (00:22→20:46)
[2019-03-25] MEDS: NYSTATIN POWDER 15 GM BOTTLE TOP SCH ×3 (00:29→23:07)
[2019-03-25 05:20] LABS: Basophils % 0.3 % (0.0-0.8); Eosinophils # 0.1 10*3/uL (0.0-0.87); Eosinophils % 1.1 % (0.00-10.9); Hematocrit 25.8 VOL% (42.0-52.0); Hemoglobin 8.5 GM/DL (14.0-18.0); Immature Granulocytes % 1.2 %; Immature Granulocytes Absolute 0.09 #; Lymphocytes # 0.5 10*3/uL (1.4-4.0); Lymphocytes % 6.8 % (21.2-54.2); Mean Corpuscular HGB Conc 32.9 GM/DL (32-36); Mean Corpuscular Volume 88.1 FL (87-102); Mean Platelet Volume 10.6 FL (9.6-12.0); Monocytes % 11.2 % (1.7-12.7); Neutrophils % 79.4 % (38.7-73.9); Platelet Count 380 T/CUMM (130-400); Red Blood Count 2.93 MC/CUMM (3.8-5.5); Red Cell Distribution Width 18.7 % (9.3-17.3); White Blood Count 7.3 T/CUMM (4-12)
[2019-03-25 05:41] LABS: Albumin 1.5 G/DL (3.4-5.0); Bilirubin,Total 3.7 MG/DL (0.2-1.0); Calcium 7.1 MG/DL (8.5-10.1); Osmolality,Calculated 276.3 MOS/KG (273-304); Total Protein 5.4 G/DL (6.4-8.3)
[2019-03-25] MEDS: PROMETHAZINE 25 MG TABLET PO SCH (05:50)
[2019-03-25] MEDS: MAGNESIUM SULF RIDER 2 GM in PREMIX 1 EACH IV PRN ×2 (08:28→12:22)
[2019-03-25] MEDS: MAGNESIUM CHLORIDE 64 MG TABLET PO SCH ×3 (10:43→20:41)
[2019-03-25] MEDS: MICAFUNGIN 100 MG in SODIUM CHLORIDE 0.9% 100 ML IV SCH (10:43)
[2019-03-25] MEDS: DRONABINOL 2.5 MG CAPSULE PO SCH ×2 (10:44→20:42)
[2019-03-25] MEDS: ESCITALOPRAM 10 MG TABLET PO SCH (10:44)
[2019-03-25] MEDS: POTASSIUM CHLORIDE 20 MEQ TABLET PO SCH ×2 (10:44→20:42)
[2019-03-25] MEDS: CALCIUM (CARBONATE)/VITAMIN D 500 MG-200 UNIT TABLET PO SCH ×2 (10:44→20:41)
[2019-03-25] MEDS: MULTIVITAMIN (CENTRUM) TABLET PO SCH (10:44)
[2019-03-25] MEDS: PANTOPRAZOLE 40 MG TABLET PO SCH (10:44)
[2019-03-25] MEDS: FLUTICASONE 50 MCG NASAL SPRAY 16 GM BOTTLE BOTH NARES SCH (10:50)
[2019-03-25] MEDS: WHEAT DEXTRIN POWDER 244 GM BOTTLE PO SCH ×3 (12:43→23:07)
[2019-03-25] MEDS: LORazepam 0.5 MG TABLET PO PRN ×2 (13:18→22:51)
[2019-03-25] MEDS: CALCIUM CARBONATE CHEW 500 MG TABLET PO SCH ×2 (13:20→20:41)
[2019-03-25] MEDS: cefTRIAXone 1,000 MG in SYRINGE 1 EACH IV SCH (18:07)
[2019-03-25] MEDS: rOPINIRole 0.25 MG TABLET PO SCH (20:42)
[2019-03-26] MEDS: DEXTROSE 5% NACL 0.45% 1,000 ML IV SCH ×3 (05:09→21:13)
[2019-03-26 06:13] LABS: Basophils % 0.3 % (0.0-0.8); Eosinophils # 0.1 10*3/uL (0.0-0.87); Eosinophils % 1.4 % (0.00-10.9); Hematocrit 24.7 VOL% (42.0-52.0); Hemoglobin 8.2 GM/DL (14.0-18.0); Immature Granulocytes % 1.4 %; Lymphocytes # 0.6 10*3/uL (1.4-4.0); Lymphocytes % 8.2 % (21.2-54.2); Mean Corpuscular HGB Conc 33.2 GM/DL (32-36); Mean Platelet Volume 10.3 FL (9.6-12.0); Monocytes % 13.8 % (1.7-12.7); Neutrophils % 74.9 % (38.7-73.9); Platelet Count 417 T/CUMM (130-400); Red Blood Count 2.84 MC/CUMM (3.8-5.5); White Blood Count 6.9 T/CUMM (4-12)
[2019-03-26 06:46] LABS: Albumin 1.5 G/DL (3.4-5.0); Bilirubin,Total 4.3 MG/DL (0.2-1.0); Calcium 7.4 MG/DL (8.5-10.1); Osmolality,Calculated 275.3 MOS/KG (273-304); Total Protein 5.5 G/DL (6.4-8.3)
[2019-03-26] MEDS: PROMETHAZINE 25 MG TABLET PO SCH (07:05)
[2019-03-26] MEDS ORDERED: FUROSEMIDE 20 MG/2 ML VIAL IV ONE (10:03)
[2019-03-26] MEDS: MULTIVITAMIN (CENTRUM) TABLET PO SCH (10:20)
[2019-03-26] MEDS: CALCIUM CARBONATE CHEW 500 MG TABLET PO SCH ×2 (10:25→21:19)
[2019-03-26] MEDS: PANTOPRAZOLE 40 MG TABLET PO SCH (10:26)
[2019-03-26] MEDS: NYSTATIN POWDER 15 GM BOTTLE TOP SCH ×2 (10:26→21:19)
[2019-03-26] MEDS: DRONABINOL 2.5 MG CAPSULE PO SCH ×2 (10:26→21:18)
[2019-03-26] MEDS: MICAFUNGIN 100 MG in SODIUM CHLORIDE 0.9% 100 ML IV SCH (10:26)
[2019-03-26] MEDS: MAGNESIUM CHLORIDE 64 MG TABLET PO SCH ×3 (10:26→21:19)
[2019-03-26] MEDS: CALCIUM (CARBONATE)/VITAMIN D 500 MG-200 UNIT TABLET PO SCH ×2 (10:26→21:19)
[2019-03-26] MEDS: ESCITALOPRAM 10 MG TABLET PO SCH (10:27)
[2019-03-26] MEDS: POTASSIUM CHLORIDE 20 MEQ TABLET PO SCH ×2 (10:27→21:19)
[2019-03-26] MEDS: WHEAT DEXTRIN POWDER 244 GM BOTTLE PO SCH ×3 (10:27→21:20)
[2019-03-26] MEDS: FLUTICASONE 50 MCG NASAL SPRAY 16 GM BOTTLE BOTH NARES SCH (10:27)
[2019-03-26] MEDS: MAGNESIUM SULF RIDER 2 GM in PREMIX 1 EACH IV PRN (14:25)
[2019-03-26] MEDS: cefTRIAXone 1,000 MG in SYRINGE 1 EACH IV SCH (16:57)
[2019-03-26] MEDS ORDERED: PROMETHAZINE INJ 25 MG in SODIUM CHLORIDE 0.9% 50 ML IV PRN (17:28)
[2019-03-26] MEDS: rOPINIRole 0.25 MG TABLET PO SCH (21:19)
[2019-03-26] MEDS: LORazepam 0.5 MG TABLET PO PRN (21:20)
[2019-03-26] MEDS: LEVOFLOXACIN INJ 750 MG in PREMIX 1 EACH IV SCH (23:39)
[2019-03-27] MEDS: DEXTROSE 5% NACL 0.45% 1,000 ML IV SCH ×3 (04:30→13:03)
[2019-03-27 05:48] LABS: Basophils % 0.1 % (0.0-0.8); Eosinophils # 0.1 10*3/uL (0.0-0.87); Eosinophils % 0.6 % (0.00-10.9); Hematocrit 25.1 VOL% (42.0-52.0); Hemoglobin 8.5 GM/DL (14.0-18.0); Immature Granulocytes % 3.8 %; Immature Granulocytes Absolute 0.31 #; Lymphocytes # 0.6 10*3/uL (1.4-4.0); Lymphocytes % 7.2 % (21.2-54.2); Mean Corpuscular HGB Conc 33.9 GM/DL (32-36); Mean Corpuscular Volume 86.6 FL (87-102); Mean Platelet Volume 10.5 FL (9.6-12.0); Monocytes % 14.7 % (1.7-12.7); Neutrophils % 73.6 % (38.7-73.9); Platelet Count 460 T/CUMM (130-400); Red Cell Distribution Width 19.4 % (9.3-17.3); White Blood Count 8.1 T/CUMM (4-12)
[2019-03-27 06:19] LABS: Albumin 1.6 G/DL (3.4-5.0); Bilirubin,Total 4.2 MG/DL (0.2-1.0); Calcium 7.5 MG/DL (8.5-10.1); Osmolality,Calculated 272.7 MOS/KG (273-304); Total Protein 5.7 G/DL (6.4-8.3)
[2019-03-27] MEDS: PROMETHAZINE 25 MG TABLET PO SCH (06:30)
[2019-03-27] MEDS: MAGNESIUM CHLORIDE 64 MG TABLET PO SCH ×2 (09:21→15:39)
[2019-03-27] MEDS: ESCITALOPRAM 10 MG TABLET PO SCH (09:23)
[2019-03-27] MEDS: PANTOPRAZOLE 40 MG TABLET PO SCH (09:23)
[2019-03-27] MEDS: POTASSIUM CHLORIDE 20 MEQ TABLET PO SCH (09:25)
[2019-03-27] MEDS: MULTIVITAMIN (CENTRUM) TABLET PO SCH (09:25)
[2019-03-27] MEDS: CALCIUM (CARBONATE)/VITAMIN D 500 MG-200 UNIT TABLET PO SCH (09:26)
[2019-03-27] MEDS: CALCIUM CARBONATE CHEW 500 MG TABLET PO SCH (09:26)
[2019-03-27] MEDS: MICAFUNGIN 100 MG in SODIUM CHLORIDE 0.9% 100 ML IV SCH (09:27)
[2019-03-27] MEDS: FLUTICASONE 50 MCG NASAL SPRAY 16 GM BOTTLE BOTH NARES SCH (09:29)
[2019-03-27] MEDS: WHEAT DEXTRIN POWDER 244 GM BOTTLE PO SCH ×2 (09:29→15:39)
[2019-03-27] MEDS: DRONABINOL 2.5 MG CAPSULE PO SCH (09:29)
[2019-03-27] MEDS: NYSTATIN POWDER 15 GM BOTTLE TOP SCH (10:22)
[2019-03-27 11:56] VITALS: BP 112/79
[2019-03-27] MEDS ORDERED: HEPARIN LOCK FLUSH 500 UNIT/5 ML SYRINGE IV ONE (15:01)
== END 2019-03-27 18:21 | disposition hospice, home (50) | DRG 194 ==
LOC: EDUNIT# → EDBD → N.ED 18:47 → N.EDINP 21:33 → SUATTDRO 21:33 → N.4E 21:49
PROVIDERS: ATTEND Family Medicine